=== PATIENT | male | born 1975 ===

== ENCOUNTER 2017-02-15 16:12 | Inpatient (IN) | payer OTHER ==
[2017-02-15] MEDS ORDERED: Sodium Chloride 0.9% 1,000 ML IV STA (16:37)
[2017-02-15 18:12] LABS: RBC URINE 6 /hpf (0-3); URINE BACTERIA RARE (<OCC); URINE BILIRUBIN NEGATIVE (NEGATIVE); URINE BLOOD NEGATIVE (NEGATIVE); URINE COLOR AMBER (YELLOW); URINE GLUCOSE (UA) NEG (Normal); URINE KETONE TRACE mg/dL (NEGATIVE); URINE LEUKOCYTE ESTERASE NEG Leu/uL (Negative); URINE PROTEIN 30 mg/dL (NEGATIVE); WBC URINE 4 /hpf (0-5)
[2017-02-15 18:17] LABS: BASO # 0.1 K/uL (0.0-0.2); BASO % 0.5 % (0.0-2.0); EOS % 0.1 % (0.0-4.0); HEMATOCRIT 36.6 % (35.0-51.0); LYMPH # 1.2 K/uL (1.0-4.3); LYMPH % 6.7 % (20.0-40.0); MEAN CELL VOLUME 87.8 fl (80.0-94.0); MEAN CORPUSCULAR HEMOGLOBIN 29.2 pg (27.0-31.0); MEAN CORPUSCULAR HGB CONC 33.3 g/dL (33.0-37.0); MEAN PLATELET VOLUME 9.3 fl (7.2-11.7); MONO # 1.7 K/uL (0.0-0.8); MONO % 9.1 % (0.0-10.0); NEUT # 15.1 K/uL (1.8-7.0); NEUT % 83.6 % (50.0-75.0); NRBC % 0.1 % (0.0-0.0); PLATELET COUNT 268 K/uL (130-400); RED CELL DISTRIBUTION WIDTH 12.8 % (11.5-14.5); WHITE BLOOD COUNT 18.1 K/uL (4.8-10.8)
[2017-02-15 18:23] LABS: ALB/GLOB RATIO 1.2 (1.0-2.1); ALKALINE PHOSPHATASE 88 U/L (38-126); ALT/SGPT 33 U/L (21-72); AST/SGOT 25 U/L (17-59); BILIRUBIN,TOTAL 0.9 mg/dl (0.2-1.3); BLOOD UREA NITROGEN 12 mg/dl (9-20); CALCIUM 8.5 mg/dL (8.4-10.2); CARBON DIOXIDE 27 mmol/L (22-30); CHLORIDE 102 mmol/L (98-107); GFR AFRICAN-AMERICAN > 60; GLUCOSE,RANDOM 95 mg/dL (75-110); LIPASE 24 U/L (23-300); POTASSIUM 3.9 MMOL/L (3.6-5.0); SODIUM 139 mmol/l (132-148); TOTAL PROTEIN 6.7 G/DL (6.3-8.2)
[2017-02-15] MEDS ORDERED: Iohexol 300 100 ML IJ ONE (18:31)
[2017-02-15] MEDS ORDERED: Sodium Chloride 0.9% 50 ML IV ONE (18:31)
--- NOTE | 2017-02-15 19:02 | ED PDOC ---
HPI: Abdomen Time Seen by Provider: 02/15/17 16:36 Chief Complaint (Nursing): Abdominal Pain Chief Complaint (Provider): Abdominal Pain History Per: Patient History/Exam Limitations: no limitations Onset/Duration Of Symptoms: Sudden Onset Current Symptoms Are (Timing): Still Present Severity: Moderate Associated Symptoms: Vomiting. denies: Diarrhea Additional Complaint(s): Mauricio Navarro is a 41 y/o male, with a past medical history of Small Bowel Obstruction, presenting to the ER on 02/15/2017 with a sudden onset of abdominal pain onset this morning. Abdominal pain is associated with multiple episodes of vomiting. Patient denies fever, diarrhea, or hematemesis. Per prior charts, patient has a history significant for multiple SBOs of unknown etiology. Patient was required to have laparotomies in the past. Past Medical History Reviewed: Historical Data, Nursing Documentation, Vital Signs Vital Signs: Last Vital Signs Temp 98.6 F 02/17/17 15:50 Pulse 76 02/17/17 15:50 Resp 20 02/17/17 15:50 BP 122/69 02/17/17 15:50 Pulse Ox 100 02/17/17 15:50 - Medical History PMH: Obstructive Bowel Denies: Crohn's Disease, HIV, Chronic Kidney Disease Other PMH: SBO - Surgical History Other surgeries: laparotomy two years ago - Family History Family History: States: Unknown Family Hx - Social History Current smoker - smoking cessation education provided: No Alcohol: None Drugs: Denies - Immunization History Hx Tetanus Toxoid Vaccination: No Hx Influenza Vaccination: No Hx Pneumococcal Vaccination: No - Home Medications Home Medications: Ambulatory Orders Medication Instructions Recorded Amoxicillin/Clavulanate [Augmentin 1 tab PO BID #8 tab 02/17/17 875 MG-125 MG] Metronidazole [Flagyl] 500 mg PO TID #15 tablet 02/17/17 - Allergies Allergies/Adverse Reactions: Allergies Allergy/AdvReac Type Severity Reaction Status Date / Time No Known Allergies Allergy Verified 10/14/16 16:06 Review of Systems ROS Statement: Except As Marked, All Systems Reviewed And Found Negative Constitutional: Negative for: Fever Gastrointestinal: Positive for: Vomiting, Abdominal Pain. Negative for: Diarrhea, Hematemesis Physical Exam - Reviewed Nursing Documentation Reviewed: Yes Vital Signs Reviewed: Yes - Physical Exam Appears: Positive for: Non-toxic, No Acute Distress Head Exam: Positive for: ATRAUMATIC, NORMOCEPHALIC Skin: Positive for: Normal Color. Negative for: Rash Eye Exam: Positive for: Normal appearance, EOMI, PERRL ENT: Positive for: Normal ENT Inspection. Negative for: Pharyngeal Erythema, Tonsillar Exudate, Tonsillar Swelling Neck: Positive for: Normal, Painless ROM, Supple Cardiovascular/Chest: Positive for: Regular Rate, Rhythm. Negative for: Murmur Respiratory: Positive for: Normal Breath Sounds. Negative for: Wheezing, Respiratory Distress Gastrointestinal/Abdominal: Positive for: Tenderness ((+) diffuse with midline healed surgicial incision ) Extremity: Positive for: Normal ROM. Negative for: Deformity, Swelling Neurologic/Psych: Positive for: Alert, Oriented. Negative for: Motor/Sensory Deficits - Laboratory Results Result Diagrams: 02/17/17 04:45 02/17/17 04:45 - ECG O2 Sat by Pulse Oximetry: 98 Medical Decision Making Medical Decision Makin:36 Initial Impression- 41 y/o male with abdominal pain in setting of known SBO history Initial Plan- * CT Abd & Pelvis IV contrast * CBC w/ differential * Morphine 2 mg IV * Sodium Chloride 1,000 ml IV * Zofran 4 mg IV 19:00 Lab work reviewed, shows elevated white count. Pt will be signed out to Dr. Vaishali MD. Peding CT results. Documented by Sharon Goodwin, acting as a scribe for Flaco Be III, DO All medical record entries made by the Scribe were at my direction and personally dictated by me. I have reviewed the chart and agree that the record accurately reflects my personal performance of the history, physical exam, medical decision making, and the department course for this patient. I have also personally directed, reviewed, and agree with the discharge instructions and disposition. Disposition - Clinical Impression Clinical Impression: Small bowel obstruction, Enteritis - Patient ED Disposition Is Patient to be Admitted: Transfer of Care - Disposition Disposition: Transfer of Care Disposition Time: 19:00 Condition: GOOD Patient Signed Over To: Candido Tom
--- NOTE | 2017-02-15 19:28 | ED PDOC ---
- Laboratory Results Result Diagrams: 02/16/17 07:21 02/16/17 07:21 - ECG O2 Sat by Pulse Oximetry: 98 Medical Decision Making Medical Decision Makin:00 Pt signed out to me by Dr. Indiana DO. Pending CT abd/pelvis and re-evaluation. 20:30 CT ABDOMEN FINDINGS: LOWER THORAX: No infiltrate seen in the lung bases. ABDOMEN: LIVER: Fatty infiltration of the liver. GALLBLADDER AND BILE DUCTS: No CT evidence of acute cholecystitis. No evidence of significant biliary ductal dilatation. PANCREAS: No CT evidence of acute pancreatitis. SPLEEN: No acute abnormality of the spleen identified. ADRENALS: No acute abnormality of the adrenal glands identified. KIDNEYS AND URETERS: Incidental fluid density left renal lesion, measuring less than 10 mm. No further followup imaging is recommended for incidental lesions of this size, unless otherwise clinically indicated. No acute abnormality of the kidneys identified. STOMACH AND BOWEL: Wall thickening is seen involving multiple small bowel loops, in the lower abdomen bilaterally, and in the left pelvis, highly suspicious for multifocal enteritis. There are a few fluid filled and dilated small bowel loops seen, most likely representing an associated ileus versus a partial small bowel obstruction. There is no evidence of a diffuse or high-grade small bowel obstruction. Unremarkable appearance of the terminal ileum. Surgical suture line/surgical anatomosis is noted in a left abdominal small bowel loop. Otherwise, no significant abnormality of the bowel is identified. No evidence of diffuse colitis/pancolitis. No evidence of pneumatosis intestinalis. APPENDIX: Appendix is seen, and is within normal limits in appearance. PELVIS: BLADDER: No acute abnormality of the bladder identified. REPRODUCTIVE: No acute abnormality of the reproductive organs is seen. ABDOMEN and PELVIS: INTRAPERITONEAL SPACE: Small amount of free fluid in the pelvis. No evidence of free air. BONES/JOINTS: Mild to moderate osteoarthritic changes involving the right hip. SOFT TISSUES: No acute abnormality of the visualized soft tissues is seen. VASCULATURE: No evidence of abdominal aortic aneurysm. No evidence of periaortic hemorrhage. LYMPH NODES: Multiple small mesenteric lymph nodes are seen. These are most likely reactive in etiology or related to be suspected enteritis. No evidence of diffuse pathologic lymphadenopathy. IMPRESSION: - Findings highly suspicious for multifocal enteritis. - Mild small bowel dilatation, most likely due to an associated ileus versus a partial SBO. - Small amount of pelvic free fluid. - See above for remaining findings. Case was discussed with Dr. Heard, surgical supply assistant, who will inform Dr. Amaro for a surgical consult. Pt will be admitted under Dr. Mi, who has agreed to accept the pt for admission. Documented by Sharon Goodwin, acting as a scribe for Candido Tom MD. All medical record entries made by the Scribe were at my direction and personally dictated by me. I have reviewed the chart and agree that the record accurately reflects my personal performance of the history, physical exam, medical decision making, and the department course for this patient. I have also personally directed, reviewed, and agree with the discharge instructions and disposition. At 03:00 RN alerted provider of patient witrh deranged VS (tachycardia/ hypotension/febrile); RN instructed to inform hospitalist Dr Mi for sepsis protocol fluid boluses and CODE sepsis. Patient upgraded o ICU for further care Disposition Discussed With Dr.: Castro Mi (Dr Heard) Doctor Will See Patient In The: ED Counseled Patient/Family Regarding: Studies Performed, Diagnosis - Clinical Impression Clinical Impression: Small bowel obstruction, Enteritis - POA Present On Arrival: None - Disposition Disposition: Admitted as In-Patient Disposition Time: 20:30 Condition: GUARDED
--- NOTE | 2017-02-15 19:54 | CT ---
EXAM: CT Abdomen and Pelvis With Intravenous Contrast CLINICAL HISTORY: 41 years old, male; Pain; Abdominal pain; Epigastric; Patient HX: Pat history of diverticulitis, also abdominal surgery last year; Additional info: Abd pain vomiting HX multiple sbo TECHNIQUE: Axial computed tomography images of the abdomen and pelvis with intravenous contrast. This CT exam was performed using one or more of the following dose reduction techniques: automated exposure control, adjustment of the mA and/or kV according to patient size, and/or use of iterative reconstruction technique. Coronal and sagittal reformatted images were created and reviewed. CONTRAST: 95 mL of OMNIPAQUE 3OO administered intravenously. EXAM DATE/TIME: 02/15/2017 4:45 PM COMPARISON: Prior CT abdomen and pelvis of 02/24/2016 will go FINDINGS: LOWER THORAX: No infiltrate seen in the lung bases. ABDOMEN: LIVER: Fatty infiltration of the liver. GALLBLADDER AND BILE DUCTS: No CT evidence of acute cholecystitis. No evidence of significant biliary ductal dilatation. PANCREAS: No CT evidence of acute pancreatitis. SPLEEN: No acute abnormality of the spleen identified. ADRENALS: No acute abnormality of the adrenal glands identified. KIDNEYS AND URETERS: Incidental fluid density left renal lesion, measuring less than 10 mm. No further followup imaging is recommended for incidental lesions of this size, unless otherwise clinically indicated. No acute abnormality of the kidneys identified. STOMACH AND BOWEL: Wall thickening is seen involving multiple small bowel loops, in the lower abdomen bilaterally, and in the left pelvis, highly suspicious for multifocal enteritis. There are a few fluid filled and dilated small bowel loops seen, most likely representing an associated ileus versus a partial small bowel obstruction. There is no evidence of a diffuse or high-grade small bowel obstruction. Unremarkable appearance of the terminal ileum. Surgical suture line/surgical anatomosis is noted in a left abdominal small bowel loop. Otherwise, no significant abnormality of the bowel is identified. No evidence of diffuse colitis/pancolitis. No evidence of pneumatosis intestinalis. APPENDIX: Appendix is seen, and is within normal limits in appearance. PELVIS: BLADDER: No acute abnormality of the bladder identified. REPRODUCTIVE: No acute abnormality of the reproductive organs is seen. ABDOMEN and PELVIS: INTRAPERITONEAL SPACE: Small amount of free fluid in the pelvis. No evidence of free air. BONES/JOINTS: Mild to moderate osteoarthritic changes involving the right hip. SOFT TISSUES: No acute abnormality of the visualized soft tissues is seen. VASCULATURE: No evidence of abdominal aortic aneurysm. No evidence of periaortic hemorrhage. LYMPH NODES: Multiple small mesenteric lymph nodes are seen. These are most likely reactive in etiology or related to be suspected enteritis. No evidence of diffuse pathologic lymphadenopathy. IMPRESSION: - Findings highly suspicious for multifocal enteritis. - Mild small bowel dilatation, most likely due to an associated ileus versus a partial SBO. - Small amount of pelvic free fluid. - See above for remaining findings.
--- NOTE | 2017-02-15 20:52 | CP.PCM.HP ---
History of Present Illness - History of Present Illness History of Present Illness: CC: abd pain, n/v History is via as patient is Slovak speaking only MHx: This is a 41 y/o male with MHx/SHx significant for episodes of SBO requiring surgeries in the past. Per his , developed abd pain this morning and 4 episodes of nb/nb vomiting. Not able to take PO. Denies f/c/diarrhea. Last BM this AM. He has not been on any narcotics or any other new medications recently. ROS: 14 pt. ROS negative other than HPI MHx: multiple admissions for SBO in the past SHx: surgery for SBO x 2, 2012 and 2014; Dental surgery Allergies: Cipro, flagyl listed in the past Medications: None Family Hx: Reviewed, no relevant hx Social Hx: Lives at home with family; denies EtOH, denies tobacco Surrogate decision maker: ; contact info on chart Present on Admission - Present on Admission Any Indicators Present on Admission: No Past Patient History - Infectious Disease Hx of Infectious Diseases: None - Tetanus Immunizations Tetanus Immunization: Unknown - Past Medical History & Family History Past Medical History?: Yes - Past Social History Alcohol: None Drugs: Denies - CARDIAC Hx Cardiac Disorders: No - PULMONARY Hx Respiratory Disorders: No - NEUROLOGICAL Hx Neurological Disorder: No - HEENT Hx HEENT Problems: No - RENAL Hx Chronic Kidney Disease: No - ENDOCRINE/METABOLIC Hx Endocrine Disorders: No - HEMATOLOGICAL/ONCOLOGICAL Hx Human Immunodeficiency Virus (HIV): No - INTEGUMENTARY Hx Dermatological Problems: No - MUSCULOSKELETAL/RHEUMATOLOGICAL Hx Musculoskeletal Disorders: No - GASTROINTESTINAL Hx Crohn's Disease: No - GENITOURINARY/GYNECOLOGICAL Hx Genitourinary Disorders: No - PSYCHIATRIC Hx Psychophysiologic Disorder: No Hx Substance Use: No - SURGICAL HISTORY Hx Surgeries: Yes Other/Comment: SB resection x 2 (2012 & 2013) - ANESTHESIA Hx Anesthesia: Yes Hx Anesthesia Reactions: No Hx Malignant Hyperthermia: No Meds Allergies/Adverse Reactions: Allergies Allergy/AdvReac Type Severity Reaction Status Date / Time No Known Allergies Allergy Verified 10/14/16 16:06 Physical Exam - Constitutional Appears: No Acute Distress - Head Exam Head Exam: ATRAUMATIC, NORMOCEPHALIC - Eye Exam Eye Exam: EOMI, PERRL - ENT Exam ENT Exam: Mucous Membranes Dry - Neck Exam Neck exam: Positive for: Full Rom - Respiratory Exam Respiratory Exam: Clear to Auscultation Bilateral, NORMAL BREATHING PATTERN - Cardiovascular Exam Cardiovascular Exam: REGULAR RHYTHM, +S1, +S2 - GI/Abdominal Exam GI & Abdominal Exam: Normal Bowel Sounds, Soft, Tenderness - Extremities Exam Extremities exam: Positive for: full ROM, normal inspection - Neurological Exam Neurological exam: Alert, CN II-XII Intact, Oriented x3 - Psychiatric Exam Psychiatric exam: Normal Affect, Normal Mood - Skin Skin Exam: Dry, Warm Results - Vital Signs Recent Vital Signs: Last Vital Signs Temp 99.6 F 02/15/17 20:27 Pulse 92 H 02/15/17 20:27 Resp 18 02/15/17 20:27 BP 101/52 L 02/15/17 19:10 Pulse Ox 95 02/15/17 20:27 - Labs Result Diagrams: 02/15/17 18:06 02/15/17 18:06 - Imaging and Cardiology CT scan - abdomen Status: Image reviewed by me, Report reviewed by me (Ileus vs partial SBO) Assessment & Plan (1) Small bowel obstruction Assessment and Plan: 41 y/o male with prior history of abd surgery and recurrent SBOs coming in with abd pain n/v. 1) Partial SBO vs. Ileus -NPO, IVF -Morphine for pain PRN IV, Zofran for nausea IV -Surgery, Dr. Hampton consulted 2) DVT PPx -- SCDS only in case needs procedure Status: Acute (2) DVT prophylaxis Status: Acute
[2017-02-15] MEDS ORDERED: Sodium Chloride 0.9% 1,000 ML IV SCH ×2 (21:00→23:45)
[2017-02-15 21:51] LABS: NEUTROPHIL 83 % (42-75); TOTAL CELLS COUNTED 100
[2017-02-15 21:52] LABS: GIANT PLATELETS PRESENT; LARGE PLATELETS PRESENT
[2017-02-15 22:55] LABS: RBC URINE 2 /hpf (0-3); URINE BILIRUBIN NEGATIVE (NEGATIVE); URINE BLOOD NEGATIVE (NEGATIVE); URINE COLOR YELLOW (YELLOW); URINE GLUCOSE (UA) NEG (Normal); URINE KETONE NEGATIVE (NEGATIVE); URINE LEUKOCYTE ESTERASE NEG Leu/uL (Negative); URINE PROTEIN 30 mg/dL (NEGATIVE); WBC CLUMPS FEW /hpf; WBC URINE 46 /hpf (0-5)
--- NOTE | 2017-02-15 23:52 | CP.PCM.CON ---
<FélixTami - Last Filed: 02/15/17 23:48> History of Present Illness - History of Present Illness History of Present Illness: General Surgery - Dr. Amaro 41 yo M w/ hx of multiple episodes of SBO, presents to ED with complaints of N/V , Headache and bodyaches since 10am this morning. Pt states he had mild abdominal pain earlier but it resolved. He describes this event as different from prior episodes of SBO as he usually has more pain, and does not usually get bodyaches and headache. He admits to vomiting earlier today at home and in ED after receiving IV contrast. He developed a fever of 101.1. Pt states he is passing flatus and had a BM earlier today which was normal. He denies any SOB/Chest pain, Constipation, Diarrhea, Hematochezia, Hematemesis, Dysuria, Hematuria. PMH: SBO PSH: Small bowel resection x 2 (2012, 2013) No Meds NKDA Review of Systems - Review of Systems All systems: reviewed and no additional remarkable complaints except (as per HPI ) Past Patient History - Infectious Disease Hx of Infectious Diseases: None - Tetanus Immunizations Tetanus Immunization: Unknown - Past Medical History & Family History Past Medical History?: Yes - Past Social History Alcohol: None Drugs: Denies - CARDIAC Hx Cardiac Disorders: No - PULMONARY Hx Respiratory Disorders: No - NEUROLOGICAL Hx Neurological Disorder: No - HEENT Hx HEENT Problems: No - RENAL Hx Chronic Kidney Disease: No - ENDOCRINE/METABOLIC Hx Endocrine Disorders: No - HEMATOLOGICAL/ONCOLOGICAL Hx Human Immunodeficiency Virus (HIV): No - INTEGUMENTARY Hx Dermatological Problems: No - MUSCULOSKELETAL/RHEUMATOLOGICAL Hx Musculoskeletal Disorders: No - GASTROINTESTINAL Hx Crohn's Disease: No - GENITOURINARY/GYNECOLOGICAL Hx Genitourinary Disorders: No - PSYCHIATRIC Hx Psychophysiologic Disorder: No Hx Substance Use: No - SURGICAL HISTORY Hx Surgeries: Yes Other/Comment: SB resection x 2 (2012 & 2013) - ANESTHESIA Hx Anesthesia: Yes Hx Anesthesia Reactions: No Hx Malignant Hyperthermia: No Meds Allergies/Adverse Reactions: Allergies Allergy/AdvReac Type Severity Reaction Status Date / Time No Known Allergies Allergy Verified 10/14/16 16:06 - Medications Medications: Current Medications Acetaminophen (Tylenol 650 Mg Supp) 650 mg MS Q6 PRN PRN Reason: Fever >100.4 F Last Admin: 02/15/17 23:08 Dose: 650 mg Famotidine (Pepcid) 20 mg IVP Q12 GEENA Sodium Chloride (Sodium Chloride 0.9%) 1,000 mls @ 100 mls/hr IV .Q10H [facility] Stop: 02/16/17 16:59 Last Admin: 02/15/17 21:49 Dose: 100 mls/hr Sodium Chloride (Sodium Chloride 0.9%) 1,000 mls @ 999 mls/hr IV .Q1H1M [facility] Stop: 02/16/17 23:45 Piperacillin Sod/Tazobactam (Sod 3.375 gm/ Sodium Chloride) 100 mls @ 100 mls/ hr IVPB Q6 GEENA Morphine Sulfate (Morphine) 1 mg IVP Q4 PRN PRN Reason: Pain, Mild (1-3) Morphine Sulfate (Morphine) 2 mg IVP Q4 PRN PRN Reason: Pain, moderate (4-7) Last Admin: 02/15/17 23:44 Dose: 2 mg Ondansetron HCl (Zofran Inj) 4 mg IVP Q6 PRN PRN Reason: Nausea/Vomiting Physical Exam - Constitutional Appears: No Acute Distress, Other (ill appearing) - Head Exam Head Exam: ATRAUMATIC, NORMAL INSPECTION, NORMOCEPHALIC - Eye Exam Eye Exam: EOMI, Normal appearance - ENT Exam ENT Exam: Mucous Membranes Dry - Respiratory Exam Respiratory Exam: NORMAL BREATHING PATTERN. absent: Respiratory Distress - Cardiovascular Exam Cardiovascular Exam: Tachycardia - GI/Abdominal Exam GI & Abdominal Exam: Soft, Tenderness (mild ttp in LLQ). absent: Distended, Firm, Guarding, Rebound, Rigid - Neurological Exam Neurological exam: Alert, Oriented x3 - Psychiatric Exam Psychiatric exam: Normal Affect, Normal Mood - Skin Skin Exam: Dry, Intact, Normal Color Results - Vital Signs Recent Vital Signs: Last Vital Signs Temp 101.1 F H 02/15/17 21:50 Pulse 91 H 02/15/17 21:50 Resp 18 02/15/17 21:50 BP 109/60 02/15/17 21:50 Pulse Ox 97 02/15/17 21:50 - Labs Result Diagrams: 02/15/17 18:06 02/15/17 18:06 Labs: Laboratory Results - last 24 hr 02/15/17 22:40 Urine Color Yellow Urine Clarity Turbid Urine pH 5.0 Ur Specific [place] 1.028 Urine Protein 30 Urine Glucose (UA) Neg Urine Ketones Negative Urine Blood Negative Urine Nitrate Negative Urine Bilirubin Negative Urine Urobilinogen 2.0 Ur Leukocyte Esterase Neg Urine RBC (Auto) 2 Urine WBC Clumps (Auto) Few H Urine Microscopic WBC 46 H Urine Yeast (Budding) Few H - Imaging and Cardiology CT scan - abdomen Status: Image reviewed by me, Report reviewed by me Assessment & Plan - Assessment and Plan (Free Text) Assessment: 41 yo M w/ hx of recurrent SBO, with Enteritis and mild partial SBO -CT suggestive of multifocal enteritis with a few dilated small bowel loops -NPO, may have ice chips -IVF hydration -IV Abx -Zofran prn -No surgical intervention DW Dr Prem Heard PGY2 <Thaddeus Amaro - Last Filed: 02/16/17 21:27> Meds - Medications Medications: Current Medications Acetaminophen (Tylenol 650 Mg Supp) 650 mg MS Q6 PRN PRN Reason: Fever >100.4 F Last Admin: 02/15/17 23:08 Dose: 650 mg Famotidine (Pepcid) 20 mg IVP Q12 GEENA Last Admin: 02/16/17 20:38 Dose: 20 mg Piperacillin Sod/Tazobactam (Sod 3.375 gm/ Sodium Chloride) 100 mls @ 100 mls/ hr IVPB 0000,0600,1200,1800 GEENA Last Admin: 02/16/17 17:24 Dose: 100 mls/hr Ketorolac Tromethamine (Toradol) 30 mg IVP Q6 PRN PRN Reason: Pain, moderate (4-7) Last Admin: 02/16/17 10:27 Dose: 30 mg Morphine Sulfate (Morphine) 1 mg IVP Q4 PRN PRN Reason: Pain, Mild (1-3) Morphine Sulfate (Morphine) 2 mg IVP Q4 PRN PRN Reason: Pain, moderate (4-7) Last Admin: 02/15/17 23:44 Dose: 2 mg Ondansetron HCl (Zofran Inj) 4 mg IVP Q4H PRN PRN Reason: Nausea/Vomiting Results - Vital Signs Recent Vital Signs: Last Vital Signs Temp 99 F 02/16/17 20:00 Pulse 65 02/16/17 20:00 Resp 13 02/16/17 20:00 BP 141/58 L 02/16/17 20:00 Pulse Ox 98 02/16/17 20:37 - Labs Result Diagrams: 02/16/17 07:21 02/16/17 07:21 Labs: Laboratory Results - last 24 hr 02/16/17 02/16/17 02/16/17 05:06 07:21 07:21 WBC 10.4 RBC 3.49 L Hgb 10.2 L D Hct 31.3 L MCV 89.9 D MCH 29.4 MCHC 32.7 L RDW 13.2 Plt Count 207 MPV 9.1 Neut % (Auto) 71.1 Lymph % (Auto) 15.2 L [place] % (Auto) 12.0 H Eos % (Auto) 1.0 Baso % (Auto) 0.7 Neut # 7.4 H Lymph # 1.6 [place] # 1.2 H Eos # 0.1 Baso # 0.1 Sodium 141 Potassium 3.7 Chloride 111 H Carbon Dioxide 24 Anion Gap 10 BUN 9 Creatinine 0.7 L Est GFR ( Amer) > 60 Est GFR (Non-Af Amer) > 60 Random Glucose 91 Lactic Acid 0.8 Calcium 7.3 L 02/16/17 07:21 WBC RBC Hgb Hct MCV MCH MCHC RDW Plt Count MPV Neut % (Auto) Lymph % (Auto) [place] % (Auto) Eos % (Auto) Baso % (Auto) Neut # Lymph # [place] # Eos # Baso # Sodium Potassium Chloride Carbon Dioxide Anion Gap BUN Creatinine Est GFR ( Amer) Est GFR (Non-Af Amer) Random Glucose Lactic Acid 0.7 Calcium Attending/Attestation - Attestation I have personally seen and examined this patient.: Yes I have fully participated in the care of the patient.: Yes I have reviewed all pertinent clinical information: Yes Notes (Text): 02/16/17 21:26 Pt was seen and examined at bedside on 02/16/17 Agree with above note and assessment Pt with Severe Enteritis with dehydration and Hypovolemia C/W IV antibiotics Plan d.w pt in detail. Risk and benefit explained in detail.
[2017-02-16] MEDS: Sodium Chloride 0.9% 1,000 ML IV SCH ×4 (01:16→17:25)
[2017-02-16] MEDS ORDERED: Sodium Chloride 0.9% 500 ML IV ONE (03:09)
[2017-02-16] MEDS: Piperacillin/Tazobact 3.375 GM in Sodium Chloride 0.9% 100 ML IVPB SCH ×4 (06:04→23:07)
[2017-02-16 07:33] LABS: BASO # 0.1 K/uL (0.0-0.2); BASO % 0.7 % (0.0-2.0); EOS # 0.1 K/uL (0.0-0.7); HEMATOCRIT 31.3 % (35.0-51.0); LYMPH # 1.6 K/uL (1.0-4.3); LYMPH % 15.2 % (20.0-40.0); MEAN CELL VOLUME 89.9 fl (80.0-94.0); MEAN CORPUSCULAR HEMOGLOBIN 29.4 pg (27.0-31.0); MEAN CORPUSCULAR HGB CONC 32.7 g/dL (33.0-37.0); MEAN PLATELET VOLUME 9.1 fl (7.2-11.7); MONO # 1.2 K/uL (0.0-0.8); NEUT # 7.4 K/uL (1.8-7.0); NEUT % 71.1 % (50.0-75.0); RED CELL DISTRIBUTION WIDTH 13.2 % (11.5-14.5); WHITE BLOOD COUNT 10.4 K/uL (4.8-10.8)
[2017-02-16 07:37] LABS: BLOOD UREA NITROGEN 9 mg/dl (9-20); CALCIUM 7.3 mg/dL (8.4-10.2); CARBON DIOXIDE 24 mmol/L (22-30); CHLORIDE 111 mmol/L (98-107); GFR AFRICAN-AMERICAN > 60; GLUCOSE,RANDOM 91 mg/dL (75-110); POTASSIUM 3.7 MMOL/L (3.6-5.0); SODIUM 141 mmol/l (132-148)
--- NOTE | 2017-02-16 09:31 | RAD ---
PROCEDURE: CHEST RADIOGRAPH, 1 VIEW HISTORY: fever COMPARISON: 10/14/2016. FINDINGS: LUNGS: The lungs are well inflated and clear. PLEURA: No pneumothorax or pleural fluid seen. CARDIOVASCULAR: Normal. OSSEOUS STRUCTURES: No significant abnormalities. VISUALIZED UPPER ABDOMEN: Normal. OTHER FINDINGS: None. IMPRESSION: No active pulmonary disease.
--- NOTE | 2017-02-16 11:33 | CP.PCM.PN ---
<Stacie Darling - Last Filed: 02/16/17 17:05> Subjective - Date & Time of Evaluation Date of Evaluation: 02/16/17 Time of Evaluation: 06:45 - Subjective Subjective: Pt s/e at bedside in the ICU. Patient states that his abdominal pain and nausea have resolved with only mild residual LLQ pain. Patient states that he is passing gas and tolerating sips of water well. Denies any fevers, chills, chest pain, SOB, or any other complaints or concerns. Patient was sent to the ICU this AM for hypotension, which resolved with aggressive fluid resuscitation. Objective - Vital Signs/Intake and Output Vital Signs (last 24 hours): Temp Pulse Resp BP Pulse Ox 97.6 F 66 16 108/63 98 02/16/17 08:00 02/16/17 10:00 02/16/17 10:00 02/16/17 10:00 02/16/17 10:00 Intake and Output: 02/16/17 02/16/17 06:59 18:59 Intake Total 100 Balance 100 - Medications Medications: Current Medications Acetaminophen (Tylenol 650 Mg Supp) [address] Q6 PRN PRN Reason: Fever >100.4 F Last Admin: 02/15/17 23:08 Dose: 650 mg Famotidine (Pepcid) 20 mg IVP Q12 [facility] Last Admin: 02/16/17 08:20 Dose: 20 mg Sodium Chloride (Sodium Chloride 0.9%) 1,000 mls @ 150 mls/hr IV .Q6H40M [facility] Stop: 02/16/17 21:07 Last Admin: 02/16/17 08:22 Dose: 150 mls/hr Piperacillin Sod/Tazobactam (Sod 3.375 gm/ Sodium Chloride) 100 mls @ 100 mls/ hr IVPB 0000,0600,1200,1800 [facility] Last Admin: 02/16/17 06:04 Dose: 100 mls/hr Ketorolac Tromethamine (Toradol) 30 mg IVP Q6 PRN PRN Reason: Pain, moderate (4-7) Last Admin: 02/16/17 10:27 Dose: 30 mg Morphine Sulfate (Morphine) 1 mg IVP Q4 PRN PRN Reason: Pain, Mild (1-3) Morphine Sulfate (Morphine) 2 mg IVP Q4 PRN PRN Reason: Pain, moderate (4-7) Last Admin: 02/15/17 23:44 Dose: 2 mg Ondansetron HCl (Zofran Inj) 4 mg IVP Q4H PRN PRN Reason: Nausea/Vomiting - Labs Labs: 02/16/17 07:21 02/16/17 07:21 - Constitutional Appears: Well, Non-toxic, No Acute Distress - Head Exam Head Exam: ATRAUMATIC, NORMOCEPHALIC - Eye Exam Eye Exam: Normal appearance. absent: Conjunctival injection, Scleral icterus - ENT Exam ENT Exam: Mucous Membranes Moist, Normal Oropharynx - Respiratory Exam Respiratory Exam: NORMAL BREATHING PATTERN. absent: Accessory Muscle Use, Respiratory Distress - Cardiovascular Exam Cardiovascular Exam: RRR - GI/Abdominal Exam GI & Abdominal Exam: Distended (mild distention in the BL lower quadrants), Soft , Tenderness (mild tenderness to palpation in the LLQ). absent: Guarding, Rigid , Rebound - Extremities Exam Extremities Exam: absent: Calf Tenderness, Pedal Edema, Tenderness - Neurological Exam Neurological Exam: Alert, Awake, Oriented x3 - Psychiatric Exam Psychiatric exam: Normal Affect, Normal Mood - Skin Skin Exam: Dry, Intact, Normal Color, Warm Assessment and Plan - Assessment and Plan (Free Text) Assessment: 41M with PMH of small bowel resection with abdominal pain and fevers CT 02/15: multifocal enteritis with few dilated loops of small bowel Abdominal complaints resolved today, passing gas, No acute abdomen on exam Afebrile for 12 hours Hypotension early this AM resolved with fluid resuscitation WBC: 10.4 down from 18.1 yesterday Plan: -No indication for emergent surgery, case suspicious of enteritis vs. partial SBO -Leukocytosis, fevers, and hypotension have resolved -Continue antibiotics -Serial abdominal exams -Urine culture to assess for UTI as cause of infectious picture -Advance to CLD as tolerated. FLD in the AM if tolerated CLD -Encourage ambulation Further recs per Dr. Dheeraj Darling, PGY1 <Thaddeus Amaro - Last Filed: 02/16/17 21:32> Objective - Vital Signs/Intake and Output Vital Signs (last 24 hours): Temp Pulse Resp BP Pulse Ox 99 F 65 13 141/58 L 98 02/16/17 20:00 02/16/17 20:00 02/16/17 20:00 02/16/17 20:00 02/16/17 20:37 Intake and Output: 02/16/17 02/17/17 18:59 06:59 Intake Total 2230 420 Output Total 950 400 Balance 1280 20 - Medications Medications: Current Medications Acetaminophen (Tylenol 650 Mg Supp) [address] Q6 PRN PRN Reason: Fever >100.4 F Last Admin: 02/15/17 23:08 Dose: 650 mg Famotidine (Pepcid) 20 mg IVP Q12 [facility] Last Admin: 02/16/17 20:38 Dose: 20 mg Piperacillin Sod/Tazobactam (Sod 3.375 gm/ Sodium Chloride) 100 mls @ 100 mls/ hr IVPB 0000,0600,1200,1800 [facility] Last Admin: 02/16/17 17:24 Dose: 100 mls/hr Ketorolac Tromethamine (Toradol) 30 mg IVP Q6 PRN PRN Reason: Pain, moderate (4-7) Last Admin: 02/16/17 10:27 Dose: 30 mg Morphine Sulfate (Morphine) 1 mg IVP Q4 PRN PRN Reason: Pain, Mild (1-3) Morphine Sulfate (Morphine) 2 mg IVP Q4 PRN PRN Reason: Pain, moderate (4-7) Last Admin: 02/15/17 23:44 Dose: 2 mg Ondansetron HCl (Zofran Inj) 4 mg IVP Q4H PRN PRN Reason: Nausea/Vomiting - Labs Labs: 02/16/17 07:21 02/16/17 07:21 Attending/Attestation - Attestation I have personally seen and examined this patient.: Yes I have fully participated in the care of the patient.: Yes I have reviewed all pertinent clinical information, including history, physical exam and plan: Yes Notes (Text): 02/16/17 21:31 Pt was seen and examined at bedside on 02/16/17 Agree with above note and assessment Pt with Resolving Enteritis and Dehydration Can start Clear liquid diet IV antibiotics No need for any surgical intervention at present. Plan d.w pt in detail. Risk and benefit explained in detail.
--- NOTE | 2017-02-16 12:11 | CP.CCUPN ---
CCU Subjective - Physician Review Events Since Last Encounter (Free Text): 02/16/17 17:41 The patient was Seen/interviewed and examined by me at the bedside during ICU round, Medical records reviewed and Management issues were discussed and formulated with the house staff. 41 Years old Male admitted to the ICU for management of Small bowel obstruction and Sepsis secondary to multifocal enteritis He is doing better today Remains NPO, on IV Fluids Afebrile 02/16/17 17:43 ABD PELVIS IV CONTRAST ONLY Exam Date: 02/15/17 IMPRESSION: - Findings highly suspicious for multifocal enteritis. - Mild small bowel dilatation, most likely due to an associated ileus versus a partial SBO. - Small amount of pelvic free fluid. CCU Objective - Vital Signs / Intake & Output Vital Signs (Last 4 hours): Vital Signs Pulse Resp BP Pulse Ox 02/16/17 10:00 66 16 108/63 98 Intake and Output (Last 8hrs): Intake & Output 02/15/17 02/16/17 02/16/17 22:59 06:59 14:59 Intake Total 100 100 Balance 100 100 Intake: Intake, Piggyback 100 100 Other: # Voids Urine, Voided 1 # Bowel Movements 0 - Physical Exam Head: Positive for: Atraumatic, Normocephalic Pupils: Positive for: PERRL. Negative for: Sluggish, Non-Reactive, Pinpoint Extroacular Muscles: Positive for: EOMI Conjunctiva: Positive for: Normal. Negative for: Injected, Icteric Mouth: Positive for: Moist Mucous Membranes Pharnyx: Positive for: Normal. Negative for: ERYTHEMA Nose (Internal): Positive for: Normal Inspection Neck: Positive for: Normal Range of Motion, Trachea Midline. Negative for: Meningeal Signs, MIDLINE TENDERNESS, Paraspinal Tenderness, JVD, Lymphadenopathy , Bruit, Other Respiratory/Chest: Positive for: Clear to Auscultation, Good Air Exchange. Negative for: Respiratory Distress, Accessory Muscle Use, Wheezes, Decreased Breath Sounds, Rales, Retracting, Rhonchi, Tachypneic, Tender to Palpation Cardiovascular: Positive for: Regular Rate and Rhythm, Normal S1, S2, Peripheal Pulses Present. Negative for: Murmurs, Irregular Rhythm Abdomen: Positive for: Tenderness (Generalized), Distention, Normal Bowel Sounds. Negative for: Peritoneal Signs, Rebound, Guarding, McBurney's Point Tender, Rovsing's Sign Present, Hernias Neurological: Positive for: GCS=15, CN II-XII Intact, Speech Normal, Motor Func Grossly Intact, Normal Sensory Function - Medications Active Medications: Active Medications Generic Name Dose Route Start Last Admin Trade Name Freq PRN Reason Stop Dose Admin Acetaminophen 650 mg 02/15/17 22:27 02/15/17 23:08 Tylenol 650 Mg Supp ME 650 mg Q6 PRN Administration Fever >100.4 F Famotidine 20 mg 02/16/17 09:00 02/16/17 08:20 Pepcid IVP 20 mg Q12 [facility] Administration Sodium Chloride 1,000 mls @ 150 mls/hr 02/16/17 01:08 02/16/17 08:22 Sodium Chloride 0.9% IV 02/16/17 21:07 150 mls/hr .Q6H40M [facility] Administration Piperacillin Sod/Tazobactam 100 mls @ 100 mls/hr 02/16/17 06:00 02/16/17 11: 39 Sod 3.375 gm/ Sodium Chloride IVPB 100 mls/hr 0000,0600,1200,1800 [facility] Administration Ketorolac Tromethamine 30 mg 02/16/17 00:09 02/16/17 10:27 Toradol IVP 30 mg Q6 PRN Administration Pain, moderate (4-7) Morphine Sulfate 1 mg 02/15/17 20:48 Morphine IVP Q4 PRN Pain, Mild (1-3) Morphine Sulfate 2 mg 02/15/17 20:51 02/15/17 23:44 Morphine IVP 2 mg Q4 PRN Administration Pain, moderate (4-7) Ondansetron HCl 4 mg 02/16/17 00:10 Zofran Inj IVP Q4H PRN Nausea/Vomiting - Patient Studies Lab Studies: Lab Studies 02/16/17 02/16/17 02/16/17 Range/Units 07:21 07:21 07:21 WBC 10.4 (4.8-10.8) K/uL RBC 3.49 L (4.40-5.90) Mil/uL Hgb 10.2 L D (12.0-18.0) g/dL Hct 31.3 L (35.0-51.0) % MCV 89.9 D (80.0-94.0) fl MCH 29.4 (27.0-31.0) pg MCHC 32.7 L (33.0-37.0) g/dL RDW 13.2 (11.5-14.5) % Plt Count 207 (130-400) K/uL MPV 9.1 (7.2-11.7) fl Neut % (Auto) 71.1 (50.0-75.0) % Lymph % (Auto) 15.2 L (20.0-40.0) % Harlan % (Auto) 12.0 H (0.0-10.0) % Eos % (Auto) 1.0 (0.0-4.0) % Baso % (Auto) 0.7 (0.0-2.0) % Neut # 7.4 H (1.8-7.0) K/uL Lymph # 1.6 (1.0-4.3) K/uL Harlan # 1.2 H (0.0-0.8) K/uL Eos # 0.1 (0.0-0.7) K/uL Baso # 0.1 (0.0-0.2) K/uL Sodium 141 (132-148) mmol/l Potassium 3.7 (3.6-5.0) MMOL/L Chloride 111 H (98-107) mmol/L Carbon Dioxide 24 (22-30) mmol/L Anion Gap 10 (10-20) BUN 9 (9-20) mg/dl Creatinine 0.7 L (0.8-1.5) mg/dL Est GFR ( Amer) > 60 Est GFR (Non-Af Amer) > 60 Random Glucose 91 (75-110) mg/dL Lactic Acid 0.7 (0.7-2.1) MMOL/L Calcium 7.3 L (8.4-10.2) mg/dL 02/16/17 Range/Units 05:06 WBC (4.8-10.8) K/uL RBC (4.40-5.90) Mil/uL Hgb (12.0-18.0) g/dL Hct (35.0-51.0) % MCV (80.0-94.0) fl MCH (27.0-31.0) pg MCHC (33.0-37.0) g/dL RDW (11.5-14.5) % Plt Count (130-400) K/uL MPV (7.2-11.7) fl Neut % (Auto) (50.0-75.0) % Lymph % (Auto) (20.0-40.0) % Harlan % (Auto) (0.0-10.0) % Eos % (Auto) (0.0-4.0) % Baso % (Auto) (0.0-2.0) % Neut # (1.8-7.0) K/uL Lymph # (1.0-4.3) K/uL Harlan # (0.0-0.8) K/uL Eos # (0.0-0.7) K/uL Baso # (0.0-0.2) K/uL Sodium (132-148) mmol/l Potassium (3.6-5.0) MMOL/L Chloride (98-107) mmol/L Carbon Dioxide (22-30) mmol/L Anion Gap (10-20) BUN (9-20) mg/dl Creatinine (0.8-1.5) mg/dL Est GFR ( Amer) Est GFR (Non-Af Amer) Random Glucose (75-110) mg/dL Lactic Acid 0.8 (0.7-2.1) MMOL/L Calcium (8.4-10.2) mg/dL Laboratory Results - last 24 hr 02/16/17 02/16/17 02/16/17 05:06 07:21 07:21 WBC 10.4 RBC 3.49 L Hgb 10.2 L D Hct 31.3 L MCV 89.9 D MCH 29.4 MCHC 32.7 L RDW 13.2 Plt Count 207 MPV 9.1 Neut % (Auto) 71.1 Lymph % (Auto) 15.2 L Harlan % (Auto) 12.0 H Eos % (Auto) 1.0 Baso % (Auto) 0.7 Neut # 7.4 H Lymph # 1.6 Harlan # 1.2 H Eos # 0.1 Baso # 0.1 Sodium 141 Potassium 3.7 Chloride 111 H Carbon Dioxide 24 Anion Gap 10 BUN 9 Creatinine 0.7 L Est GFR ( Amer) > 60 Est GFR (Non-Af Amer) > 60 Random Glucose 91 Lactic Acid 0.8 Calcium 7.3 L 02/16/17 07:21 WBC RBC Hgb Hct MCV MCH MCHC RDW Plt Count MPV Neut % (Auto) Lymph % (Auto) Harlan % (Auto) Eos % (Auto) Baso % (Auto) Neut # Lymph # Harlan # Eos # Baso # Sodium Potassium Chloride Carbon Dioxide Anion Gap BUN Creatinine Est GFR ( Amer) Est GFR (Non-Af Amer) Random Glucose Lactic Acid 0.7 Calcium EKG/Cardiology Studies: Cardiology / EKG Studies 02/16/17 EKG [ELECTROCARDIOGRAM] Routine Comment: Mode Of Transportation: Reason For Exam: cp Review of Systems - Constitutional Constitutional: absent: Fever, Chills, Sweats - Cardiovascular Cardiovascular: absent: As Per HPI, Acrocyanosis, Chest Pain, Chest Pain at Rest , Chest Pain with Activity, Claudication, Diaphoresis, Dyspnea, Dyspnea on Exertion, Edema, Irregular Heart Rhythm, Pain Radiating to Arm/Neck/Jaw, Leg Edema, Leg Ulcers, Lightheadedness, Orthopnea, Palpitations, Paroxysmal Nocturnal Dyspnea, Pedal Edema, Radiating Pain, Rapid Heart Rate, Slow Heart Rate, Syncope, Other, UNREMARKABLE - Respiratory Respiratory: absent: As Per HPI, Cough, Dyspnea, Hemoptysis, Dyspnea on Exertion , Wheezing, Snoring, Stridor, Pain on Inspiration, Chest Congestion, Excessive Mucous Production, Change in Mucous Color, Pain with Coughing, Other, UNREMARKABLE - Gastrointestinal Gastrointestinal: As Per HPI Assessment/Plan (1) Sepsis Current Visit: Yes Status: Acute (2) Partial bowel obstruction Current Visit: No Status: Acute Priority: High (3) Enteritis Current Visit: No Status: Acute Comment: (4) Ileus Current Visit: No Status: Acute - Assessment and Plan (Free Text) Assessment: Patient afebrile, and hemodynamically improving IV antibiotics with Piperacillin Sod/Tazobactam Blood cultures: pending NPO Continue IV hydration with NS at 100cc/hr; continue to reassess fluid status regularly Monitor UOP Strict Is/Os Surgery consult Monitor fever curve, Tylenol PRN fevers Trend WBC count, lactate
--- NOTE | 2017-02-16 12:48 | CP.PCM.PN ---
Subjective - Date & Time of Evaluation Date of Evaluation: 02/16/17 Time of Evaluation: 12:48 - Subjective Subjective: Patient seen examined bedside Temp Pulse Resp BP Pulse Ox 98.5 F 62 13 109/62 99 02/16/17 12:00 02/16/17 14:00 02/16/17 14:00 02/16/17 14:00 02/16/17 14:00 states he feels improved, awake, alert denies any abdominal pain last BM yesterday, passing gas. no nausea or emesis no diarrhea vitals stable, no acute distress Objective - Vital Signs/Intake and Output Vital Signs (last 24 hours): Temp Pulse Resp BP Pulse Ox 98.5 F 59 L 19 112/61 98 02/16/17 12:00 02/16/17 12:00 02/16/17 12:00 02/16/17 12:00 02/16/17 12:00 Intake and Output: 02/16/17 02/16/17 06:59 18:59 Intake Total 100 100 Balance 100 100 - Medications Medications: Current Medications Acetaminophen (Tylenol 650 Mg Supp) 650 mg [place] Q6 PRN PRN Reason: Fever >100.4 F Last Admin: 02/15/17 23:08 Dose: 650 mg Famotidine (Pepcid) 20 mg IVP Q12 [facility] Last Admin: 02/16/17 08:20 Dose: 20 mg Sodium Chloride (Sodium Chloride 0.9%) 1,000 mls @ 150 mls/hr IV .Q6H40M [facility] Stop: 02/16/17 21:07 Last Admin: 02/16/17 08:22 Dose: 150 mls/hr Piperacillin Sod/Tazobactam (Sod 3.375 gm/ Sodium Chloride) 100 mls @ 100 mls/ hr IVPB 0000,0600,1200,1800 [facility] Last Admin: 02/16/17 11:39 Dose: 100 mls/hr Ketorolac Tromethamine (Toradol) 30 mg IVP Q6 PRN PRN Reason: Pain, moderate (4-7) Last Admin: 02/16/17 10:27 Dose: 30 mg Morphine Sulfate (Morphine) 1 mg IVP Q4 PRN PRN Reason: Pain, Mild (1-3) Morphine Sulfate (Morphine) 2 mg IVP Q4 PRN PRN Reason: Pain, moderate (4-7) Last Admin: 02/15/17 23:44 Dose: 2 mg Ondansetron HCl (Zofran Inj) 4 mg IVP Q4H PRN PRN Reason: Nausea/Vomiting - Labs Labs: 02/16/17 07:21 02/16/17 07:21 - Constitutional Appears: Non-toxic, No Acute Distress - Head Exam Head Exam: ATRAUMATIC, NORMOCEPHALIC - Eye Exam Eye Exam: EOMI, Normal appearance, PERRL Pupil Exam: NORMAL ACCOMODATION - ENT Exam ENT Exam: Mucous Membranes Moist, Normal Oropharynx - Respiratory Exam Respiratory Exam: Clear to Ausculation Bilateral, NORMAL BREATHING PATTERN - Cardiovascular Exam Cardiovascular Exam: RRR, +S1, +S2 - GI/Abdominal Exam GI & Abdominal Exam: Soft, Tenderness (generalized lower quadrants). absent: Mass, Organomegaly - Extremities Exam Extremities Exam: Normal Capillary Refill. absent: Calf Tenderness - Back Exam Back Exam: absent: CVA tenderness (L), CVA tenderness (R) - Neurological Exam Neurological Exam: Alert, Awake - Psychiatric Exam Psychiatric exam: Normal Affect, Normal Mood - Skin Skin Exam: Dry, Warm Assessment and Plan - Assessment and Plan (Free Text) Plan: 41 y/o male with MHx/SHx significant for episodes of SBO requiring surgeries in the past. Per his , developed abd pain this morning and 4 episodes of nb/nb vomiting. Not able to take PO. Denies f/c/diarrhea. Last BM this AM. He has not been on any narcotics or any other new medications recently. After admission patient became febrile, hypotensive, leukocytosis, sepsis 2/[address] also +possible partial SBO vs ileus. Patient responded well to fluid resuscitation. Patient has been passing gas, and his last BM was yesterday morning. Patient no longer nauseated, no emesis. Improved today. Consider downgrading to Medsurg tomorrow if HD stable. Sepsis secondary to multifocal enteritis continue Zosyn, had allergies to cipro and flagyl in the past. WBC trending down, HD stable, afebrile pain improving procalcitonin level for tomorrow continue to monitor until tomorrow, consider downgrading to medsurg if HD stable Small bowel obstruction Partial SBO vs. Ileus NPO, IVF Morphine for pain PRN IV, Zofran for nausea IV Surgery, Dr. Hampton consulted, no surgical intervention at this time Encourage ambulation Serial abdominal exams DVT prophylaxis
--- NOTE | 2017-02-16 17:33 | CARD ---
APPROVED REPORT EKG Measurement Heart [id number] <Conclusion> Sinus bradycardia Otherwise normal ECG
[2017-02-16] MEDS ORDERED: Piperacillin/Tazobact 3.375 GM in Sodium Chloride 0.9% 100 ML IVPB SCH (23:50)
[2017-02-17] MEDS: Piperacillin/Tazobact 3.375 GM in Sodium Chloride 0.9% 100 ML IVPB SCH ×2 (05:00→12:42)
[2017-02-17 05:31] LABS: HEMATOCRIT 33.9 % (35.0-51.0); MEAN CELL VOLUME 88.8 fl (80.0-94.0); MEAN CORPUSCULAR HEMOGLOBIN 29.2 pg (27.0-31.0); MEAN CORPUSCULAR HGB CONC 32.9 g/dL (33.0-37.0); RED CELL DISTRIBUTION WIDTH 12.8 % (11.5-14.5); WHITE BLOOD COUNT 8.2 K/uL (4.8-10.8)
[2017-02-17 05:44] LABS: BLOOD UREA NITROGEN 6 mg/dl (9-20); CALCIUM 8.3 mg/dL (8.4-10.2); CARBON DIOXIDE 27 mmol/L (22-30); CHLORIDE 105 mmol/L (98-107); GFR AFRICAN-AMERICAN > 60; GLUCOSE,RANDOM 86 mg/dL (75-110); MAGNESIUM 1.9 MG/DL (1.6-2.3); PHOSPHOROUS 3.3 mg/dl (2.5-4.5); POTASSIUM 3.6 MMOL/L (3.6-5.0); SODIUM 141 mmol/l (132-148)
--- NOTE | 2017-02-17 07:42 | CP.PCM.PN ---
<Stacie Darling - Last Filed: 02/17/17 08:02> Subjective - Date & Time of Evaluation Date of Evaluation: 02/17/17 Time of Evaluation: 06:30 - Subjective Subjective: Pt s/e at bedside in the ICU this AM. GERALDOEO. Patient says he has very mild abdominal pain but no other symptoms and tolerated the CLD yesterday. States he did not ambulate yesterday but is feeling better today and will do so. Still passing gas Objective - Vital Signs/Intake and Output Vital Signs (last 24 hours): Temp Pulse Resp BP Pulse Ox 97.9 F 66 16 113/65 100 02/17/17 04:00 02/17/17 05:55 02/17/17 05:55 02/17/17 05:55 02/17/17 05:55 Intake and Output: 02/17/17 02/17/17 06:59 18:59 Intake Total 2200 Output Total 1800 Balance 400 - Medications Medications: Current Medications Acetaminophen (Tylenol 650 Mg Supp) 650 mg [place] Q6 PRN PRN Reason: Fever >100.4 F Last Admin: 02/15/17 23:08 Dose: 650 mg Famotidine (Pepcid) 20 mg IVP Q12 [facility] Last Admin: 02/16/17 20:38 Dose: 20 mg Piperacillin Sod/Tazobactam (Sod 3.375 gm/ Sodium Chloride) 100 mls @ 100 mls/ hr IVPB 0000,0600,1200,1800 [facility] Last Admin: 02/17/17 05:00 Dose: 100 mls/hr Ketorolac Tromethamine (Toradol) 30 mg IVP Q6 PRN PRN Reason: Pain, moderate (4-7) Last Admin: 02/16/17 10:27 Dose: 30 mg Morphine Sulfate (Morphine) 1 mg IVP Q4 PRN PRN Reason: Pain, Mild (1-3) Morphine Sulfate (Morphine) 2 mg IVP Q4 PRN PRN Reason: Pain, moderate (4-7) Last Admin: 02/15/17 23:44 Dose: 2 mg Ondansetron HCl (Zofran Inj) 4 mg IVP Q4H PRN PRN Reason: Nausea/Vomiting - Labs Labs: 02/17/17 04:45 02/17/17 04:45 - Constitutional Appears: Well, Non-toxic, No Acute Distress - Head Exam Head Exam: ATRAUMATIC, NORMOCEPHALIC - Eye Exam Eye Exam: Normal appearance. absent: Conjunctival injection, Scleral icterus - ENT Exam ENT Exam: Mucous Membranes Moist, Normal Oropharynx - Respiratory Exam Respiratory Exam: NORMAL BREATHING PATTERN. absent: Accessory Muscle Use, Respiratory Distress - Cardiovascular Exam Cardiovascular Exam: RRR - GI/Abdominal Exam GI & Abdominal Exam: Soft. absent: Distended, Tenderness - Extremities Exam Extremities Exam: absent: Calf Tenderness, Pedal Edema, Tenderness - Neurological Exam Neurological Exam: Alert, Awake, Oriented x3 - Psychiatric Exam Psychiatric exam: Normal Affect, Normal Mood - Skin Skin Exam: Dry, Intact, Normal Color, Warm Assessment and Plan - Assessment and Plan (Free Text) Assessment: 41M with PMH of small bowel resection with abdominal pain and fevers Afebrile, VSS No abdominal complaints, tolerating CLD No leukocytosis Plan: -No indication for surgery -Continue antibiotics -Serial abdominal exams -FLD this AM, advance as tolerated -Encourage ambulation -Patient may be downgraded from the ICU from a surgical standpoint Further recs per Dr. Dheeraj Darling, PGY1 <Thaddeus Amaro - Last Filed: 02/18/17 12:58> Objective - Vital Signs/Intake and Output Vital Signs (last 24 hours): Temp Pulse Resp BP Pulse Ox 98.6 F 76 20 122/69 100 02/17/17 15:50 02/17/17 15:50 02/17/17 15:50 02/17/17 15:50 02/17/17 15:50 - Labs Labs: 02/17/17 04:45 02/17/17 04:45 Attending/Attestation - Attestation I have personally seen and examined this patient.: Yes I have fully participated in the care of the patient.: Yes I have reviewed all pertinent clinical information, including history, physical exam and plan: Yes Notes (Text): 02/18/17 12:57 Pt was seen and examined at bedside on 02/17/17 Agree with above note and assessment Pt with resolved enteritis and abdominal pain No need for surgical intervention at present. f.U as out pt Plan d.w pt in detail. Risk and benefit explained in detail.
--- NOTE | 2017-02-17 12:12 | CP.PCM.DIS ---
Provider - Provider Date of Admission: 02/16/17 04:34 Attending physician: Castro Mi MD Consults: Surgery : dr Amaro Time Spent in preparation of Discharge (in minutes): 35 Diagnosis - Discharge Diagnosis (1) Enteritis Status: Acute (2) Small bowel obstruction Status: Acute (3) Sepsis Status: Acute Hospital Course - Lab Results Lab Results: Most Recent Lab Values WBC 8.2 K/uL (4.8-10.8) 02/17/17 04:45 RBC 3.82 Mil/uL (4.40-5.90) L 02/17/17 04:45 Hgb 11.2 g/dL (12.0-18.0) L 02/17/17 04:45 Hct 33.9 % (35.0-51.0) L 02/17/17 04:45 MCV 88.8 fl (80.0-94.0) 02/17/17 04:45 MCH 29.2 pg (27.0-31.0) 02/17/17 04:45 MCHC 32.9 g/dL (33.0-37.0) L 02/17/17 04:45 RDW 12.8 % (11.5-14.5) 02/17/17 04:45 Plt Count 244 K/uL (130-400) 02/17/17 04:45 MPV 9.1 fl (7.2-11.7) 02/16/17 07:21 Neut % (Auto) 71.1 % (50.0-75.0) 02/16/17 07:21 Lymph % (Auto) 15.2 % (20.0-40.0) L 02/16/17 07:21 [place] % (Auto) 12.0 % (0.0-10.0) H 02/16/17 07:21 Eos % (Auto) 1.0 % (0.0-4.0) 02/16/17 07:21 Baso % (Auto) 0.7 % (0.0-2.0) 02/16/17 07:21 Neut # 7.4 K/uL (1.8-7.0) H 02/16/17 07:21 Lymph # 1.6 K/uL (1.0-4.3) 02/16/17 07:21 [place] # 1.2 K/uL (0.0-0.8) H 02/16/17 07:21 Eos # 0.1 K/uL (0.0-0.7) 02/16/17 07:21 Baso # 0.1 K/uL (0.0-0.2) 02/16/17 07:21 Neutrophils % (Manual) 83 % (42-75) H 02/15/17 18:06 Band Neutrophils % 3 % (0-2) H 02/15/17 18:06 Lymphocytes % (Manual) 8 % (20-50) L 02/15/17 18:06 Monocytes % (Manual) 6 % (0-10) 02/15/17 18:06 Platelet Estimate Normal (NORMAL) 02/15/17 18:06 Large Platelets Present 02/15/17 18:06 Giant Platelets Present 02/15/17 18:06 Anisocytosis (manual) Slight 02/15/17 18:06 Tear Drop Cells Slight 02/15/17 18:06 Ovalocytes Slight 02/15/17 18:06 Sodium 141 mmol/l (132-148) 02/17/17 04:45 Potassium 3.6 MMOL/L (3.6-5.0) 02/17/17 04:45 Chloride 105 mmol/L (98-107) 02/17/17 04:45 Carbon Dioxide 27 mmol/L (22-30) 02/17/17 04:45 Anion Gap 12 (10-20) 02/17/17 04:45 BUN 6 mg/dl (9-20) L 02/17/17 04:45 Creatinine 0.7 mg/dL (0.8-1.5) L 02/17/17 04:45 Est GFR ( Amer) > 60 02/17/17 04:45 Est GFR (Non-Af Amer) > 60 02/17/17 04:45 Random Glucose 86 mg/dL (75-110) 02/17/17 04:45 Lactic Acid 0.7 MMOL/L (0.7-2.1) 02/16/17 07:21 Calcium 8.3 mg/dL (8.4-10.2) L 02/17/17 04:45 Phosphorus 3.3 mg/dl (2.5-4.5) 02/17/17 04:45 Magnesium 1.9 MG/DL (1.6-2.3) 02/17/17 04:45 Total Bilirubin 0.9 mg/dl (0.2-1.3) 02/15/17 18:06 AST 25 U/L (17-59) 02/15/17 18:06 ALT 33 U/L (21-72) 02/15/17 18:06 Alkaline Phosphatase 88 U/L (38-126) 02/15/17 18:06 Total Protein 6.7 G/DL (6.3-8.2) 02/15/17 18:06 Albumin 3.6 g/dL (3.5-5.0) 02/15/17 18:06 Globulin 3.1 gm/dL (2.2-3.9) 02/15/17 18:06 Albumin/Globulin Ratio 1.2 (1.0-2.1) 02/15/17 18:06 Lipase 24 U/L (23-300) 02/15/17 18:06 Urine Color Yellow (YELLOW) 02/15/17 22:40 Urine Clarity Turbid (Clear) 02/15/17 22:40 Urine pH 5.0 (5.0-8.0) 02/15/17 22:40 Ur Specific [place] 1.028 (1.003-1.030) 02/15/17 22:40 Urine Protein 30 mg/dL (NEGATIVE) 02/15/17 22:40 Urine Glucose (UA) Neg mg/dL (Normal) 02/15/17 22:40 Urine Ketones Negative mg/dL (NEGATIVE) 02/15/17 22:40 Urine Blood Negative (NEGATIVE) 02/15/17 22:40 Urine Nitrate Negative (NEGATIVE) 02/15/17 22:40 Urine Bilirubin Negative (NEGATIVE) 02/15/17 22:40 Urine Urobilinogen 2.0 mg/dL (0.2-1.0) 02/15/17 22:40 Ur Leukocyte Esterase Neg [place]/uL (Negative) 02/15/17 22:40 Urine RBC (Auto) 2 /hpf (0-3) 02/15/17 22:40 Urine WBC Clumps (Auto) Few /hpf (NONE) H 02/15/17 22:40 Urine Microscopic WBC 46 /hpf (0-5) H 02/15/17 22:40 Ur Squamous Epith Cells < 1 /hpf (0-5) 02/15/17 17:10 Urine Bacteria Rare (<OCC) 02/15/17 17:10 Urine Yeast (Budding) Few /hpf (NEGATIVE) H 02/15/17 22:40 - Hospital Course Hospital Course: 41 y/o male with MHx/SHx significant for episodes of SBO requiring surgeries in the past. Per his , developed abd pain on the morning of admission and several episodes of vomiting and not able to take PO. Last BM this AM. He has not been on any narcotics or any other new medications recently. After admission patient became febrile, hypotensive, leukocytosis, sepsis 2/[address] also +possible partial SBO vs ileus. Patient responded well to fluid resuscitation. Surgery was consulted. Patient's condition improved , he has been passing gas, and had BM this morning. Patient no longer nauseated, no emesis and is tolerating Regular diet. Sepsis secondary to multifocal enteritis (POA) - received IV Zosyn - IVF hydration -WBC trended down, VS stable, afebrile -Pain resolved - pt states he is not allergic to Cipro nor Flagyl - will d/c pt home on PO Augmentin and Flagyl Partial Small bowel obstruction , resolved -Morphine for pain PRN IV, Zofran for nausea IV -Surgery, Dr. Hampton consulted, no surgical intervention at this time- cleared pt for disxcharge -Encourage ambulation - tolerating Regular diet Discharge Exam - Head Exam Head Exam: ATRAUMATIC, NORMAL INSPECTION, NORMOCEPHALIC - Eye Exam Eye Exam: EOMI, Normal appearance, PERRL Pupil Exam: NORMAL ACCOMODATION - ENT Exam ENT Exam: Mucous Membranes Moist, Normal External Ear Exam - Neck Exam Neck exam: Full Rom - Respiratory Exam Respiratory Exam: NORMAL BREATHING PATTERN. absent: Respiratory Distress - Cardiovascular Exam Cardiovascular Exam: REGULAR RHYTHM, +S1, +S2 - GI/Abdominal Exam GI & Abdominal Exam: Normal Bowel Sounds, Soft. absent: Tenderness - Extremities Exam Extremities exam: full ROM, normal capillary refill, pedal pulses present - Back Exam Back exam: FULL ROM. absent: CVA tenderness (L), CVA tenderness (R) - Neurological Exam Neurological exam: Alert, CN II-XII Intact, Oriented x3, Reflexes Normal - Psychiatric Exam Psychiatric exam: Normal Affect, Normal Mood - Skin Skin Exam: Dry, Normal Color, Warm Discharge Plan - Discharge Medications Prescriptions: Amoxicillin/Clavulanate [Augmentin 875 MG-125 MG] 1 tab PO BID #8 tab Metronidazole [Flagyl] 500 mg PO TID #15 tablet - Follow Up Plan Condition: GOOD Disposition: HOME/ ROUTINE Additional Instructions: GI clinic appt tay for further GI work up appt [facility] in 1 wk Referrals: [facility] [Outside]
[2017-02-17 14:54] VITALS: RESP 20
[2017-02-17 15:51] VITALS: BP 122/69; PULSE 76; TEMP 98.6
[2017-02-19 13:05] VITALS: O2SAT 98
== END 2017-02-17 17:00 | disposition home or self-care (01) | DRG 901 ==
LOC: H.ER 16:12 → H.ERHOLD 20:30 → OBSVTOIN 02-16 04:34 → H.ICU/CCU 02-16 05:25
PROVIDERS: ADMIT Internal Medicine; ATTEND Internal Medicine
DX: A41.9 Sepsis, unspecified organism (principal); K56.60 Unspecified intestinal obstruction; E86.0 Dehydration; E86.1 Hypovolemia; K52.9 Noninfective gastroenteritis and colitis, unspecified

== ENCOUNTER 2017-10-07 12:26 | Inpatient (IN) | payer OTHER ==
[2017-10-07 12:31] VITALS: BMI 23.6
[2017-10-07] MEDS ORDERED: Morphine 4 MG/ML VIAL IV STA (13:27)
[2017-10-07] MEDS ORDERED: Iohexol 240 (50 ml) PO STA (13:28)
[2017-10-07] MEDS ORDERED: Sodium Chloride 0.9% 1,000 ML IV STA (13:29)
[2017-10-07] MEDS ORDERED: Iohexol 240 (50 ml) ONE (13:51)
[2017-10-07] MEDS ORDERED: Morphine 4 MG/ML VIAL ONE (13:52)
[2017-10-07 14:48] LABS: BASO # 0.1 K/uL (0.0-0.2); BASO % 0.3 % (0.0-2.0); EOS % 0.2 % (0.0-4.0); HEMOGLOBIN 13.2 g/dL (12.0-18.0); LYMPH # 1.3 K/uL (1.0-4.3); LYMPH % 8.3 % (20.0-40.0); MEAN CELL VOLUME 89.7 fl (80.0-94.0); MEAN CORPUSCULAR HEMOGLOBIN 29.2 pg (27.0-31.0); MEAN CORPUSCULAR HGB CONC 32.6 g/dL (33.0-37.0); MEAN PLATELET VOLUME 9.7 fl (7.2-11.7); MONO % 6.1 % (0.0-10.0); NEUT # 13.8 K/uL (1.8-7.0); NEUT % 85.1 % (50.0-75.0); PLATELET COUNT 330 K/uL (130-400); RBC 4.51 Mil/uL (4.40-5.90); RED CELL DISTRIBUTION WIDTH 13.1 % (11.5-14.5); WHITE BLOOD COUNT 16.2 K/uL (4.8-10.8)
[2017-10-07 14:51] LABS: ALB/GLOB RATIO 1.1 (1.0-2.1); ALBUMIN 3.6 g/dL (3.5-5.0); ALT/SGPT 31 U/L (21-72); AST/SGOT 21 U/L (17-59); BLOOD UREA NITROGEN 12 mg/dl (9-20); CALCIUM 9.1 mg/dL (8.4-10.2); GFR AFRICAN-AMERICAN > 60; GFR NON-AFRICAN AMERICAN > 60
[2017-10-07 14:56] LABS: INR 1.1 (0.9-1.2); PARTIAL THROMBOPLASTIN TIME 39.3 Seconds (25.6-37.1); PROTHROMBIN TIME 11.8 Seconds (9.8-13.1)
[2017-10-07 16:04] LABS: LYMPHOCYTE 9 % (20-50); MONOCYTE 6 % (0-10); NEUTROPHIL 85 % (42-75); PLATELET ESTIMATE NORMAL (NORMAL); TOTAL CELLS COUNTED 100
[2017-10-07] MEDS ORDERED: Sodium Chloride 0.9% 50 ML IV ONE (16:34)
[2017-10-07] MEDS ORDERED: Iohexol 300 100 ML IJ ONE (16:35)
--- NOTE | 2017-10-07 17:35 | CT ---
PROCEDURE: CT Abdomen and Pelvis with contrast HISTORY: abdominal pain, vomiting, history of prior bowel obstruction. COMPARISON: 02/15/2017. TECHNIQUE: Contrast dose: 99 cc Omnipaque 300 Radiation dose: Total exam DLP = 689.65 mGy-cm. This CT exam was performed using one or more of the following dose reduction techniques: Automated exposure control, adjustment of the mA and/or kV according to patient size, and/or use of iterative reconstruction technique. FINDINGS: LOWER THORAX: Unremarkable. LIVER: Unremarkable. No gross lesion or ductal dilatation. GALLBLADDER AND BILE DUCTS: Unremarkable. PANCREAS: Unremarkable. No gross lesion or ductal dilatation. SPLEEN: Unremarkable. ADRENALS: Unremarkable. No mass. KIDNEYS AND URETERS: Unremarkable. No hydronephrosis. No solid mass. VASCULATURE: Unremarkable. No aortic aneurysm. BOWEL: Dilated small bowel with associated "Whirl sign" the findings are is highly suspicious for closed loop obstruction. Distal small bowel, colon are unremarkable pocket and constipation APPENDIX: Normal appendix. PERITONEUM: Trace fluid in the pelvis. LYMPH NODES: Unremarkable. No enlarged lymph nodes. BLADDER: Unremarkable. REPRODUCTIVE: Unremarkable. BONES: No acute fracture. OTHER FINDINGS: None. IMPRESSION: Distended loops of small bowel associated with "Oral sign" consistent with closed loop obstruction. Communication of results: I discussed findings directly with the physician perinatal breastfeeding assistant involved in the care and management this individual Vanessa Steen PA-C. Verbal results provided at 17:26
--- NOTE | 2017-10-07 17:42 | ED PDOC ---
HPI: Abdomen Time Seen by Provider: 10/07/17 13:04 Chief Complaint (Nursing): Abdominal Pain Chief Complaint (Provider): Abdominal pain, vomiting since this morning History Per: Patient History/Exam Limitations: no limitations Onset/Duration Of Symptoms: Hrs Outside of [place] travel?: No Current Symptoms Are (Timing): Still Present Severity: Severe Pain Scale Rating Of: 10 Location Of Pain/Discomfort: LUQ, LLQ Quality Of Discomfort: Sharp, Cramping Associated Symptoms: Nausea, Vomiting, Loss Of Appetite, Other (Pt reports last BM yesterdat ). denies: Fever, Chills, Diarrhea Exacerbating Factors: None Alleviating Factors: None Past Medical History Reviewed: Historical Data, Nursing Documentation, Vital Signs Vital Signs: Last Vital Signs Temp 98.2 F 10/07/17 18:40 Pulse 70 10/07/17 18:40 Resp 17 10/07/17 12:32 BP 124/69 10/07/17 18:40 Pulse Ox 98 10/07/17 18:40 - Medical History PMH: Obstructive Bowel Denies: Crohn's Disease, HIV, Chronic Kidney Disease - Surgical History Other surgeries: SBO, secondary repair - Family History Family History: States: Unknown Family Hx - Living Arrangements Living Arrangements: With Family - Home Medications Home Medications: Ambulatory Orders Medication Instructions Recorded No Known Home Med 10/07/17 - Allergies Allergies/Adverse Reactions: Allergies Allergy/AdvReac Type Severity Reaction Status Date / Time No Known Allergies Allergy Verified 10/07/17 12:31 Review of Systems ROS Statement: Except As Marked, All Systems Reviewed And Found Negative Constitutional: Negative for: Fever, Chills Gastrointestinal: Positive for: Nausea, Vomiting, Abdominal Pain Physical Exam - Reviewed Nursing Documentation Reviewed: Yes Vital Signs Reviewed: Yes - Physical Exam Appears: Positive for: Well, Non-toxic, No Acute Distress Head Exam: Positive for: ATRAUMATIC, NORMAL INSPECTION, NORMOCEPHALIC Skin: Positive for: Normal Color, Warm, DRY Eye Exam: Positive for: Normal appearance ENT: Positive for: Normal ENT Inspection Neck: Positive for: Normal, Painless ROM Cardiovascular/Chest: Positive for: Regular Rate, Rhythm Respiratory: Positive for: Normal Breath Sounds. Negative for: Accessory Muscle Use, Respiratory Distress Gastrointestinal/Abdominal: Positive for: Bowel Sounds, Soft, Tenderness, Distended. Negative for: Normal Exam, Guarding Back: Positive for: Normal Inspection Extremity: Positive for: Normal ROM Neurologic/Psych: Positive for: Alert, Oriented - Laboratory Results Result Diagrams: 10/07/17 14:16 10/07/17 14:16 - ECG O2 Sat by Pulse Oximetry: 100 Medical Decision Making Medical Decision Making: (+) closed loop obstruction on CT scan. Discussed with certified surgical technician. ELevated WBC discussed with certified surgical technician. Disposition - Clinical Impression Clinical Impression: Small bowel obstruction - Patient ED Disposition Is Patient to be Admitted: Yes Counseled Patient/Family Regarding: Diagnosis, Need For Followup - Disposition Disposition Time: 16:28 Condition: GOOD
--- NOTE | 2017-10-07 19:22 | CP.PCM.CON ---
History of Present Illness - History of Present Illness History of Present Illness: General Surgery Dr. Albert 42 y/o M w/ PMHx of SBO presents to the ED c/o abd pain. Pt is Albanian-speaking , is present at bedside providing translation. Pt reports pain began ~9am this morning. Pain similar to last episode of SBO which occurred in January,. Pt admits to multiple episodes of NBNB vomiting. Pt reports last BM was yesterday and was normal. Pt denies F/C, D/C, headache, dysuria. PMHx: SBO Meds: reviewed in chart NKDA PSHx: small bowel surgery x2 (2012, 2013) SHx: denies tobacco, EtOH, drug use FHx: noncontributory Review of Systems - Review of Systems All systems: reviewed and no additional remarkable complaints except (see HPI) Past Patient History - Infectious Disease Hx of Infectious Diseases: None - Tetanus Immunizations Tetanus Immunization: Unknown - Past Medical History & Family History Past Medical History?: Yes - Past Social History Smoking Status: Never Smoked - CARDIAC Hx Cardiac Disorders: No - PULMONARY Hx Respiratory Disorders: No - NEUROLOGICAL Hx Neurological Disorder: No - HEENT Hx HEENT Problems: No - RENAL Hx Chronic Kidney Disease: No - ENDOCRINE/METABOLIC Hx Endocrine Disorders: No - HEMATOLOGICAL/ONCOLOGICAL Hx Human Immunodeficiency Virus (HIV): No - INTEGUMENTARY Hx Dermatological Problems: No - MUSCULOSKELETAL/RHEUMATOLOGICAL Hx Falls: No - GASTROINTESTINAL Hx Crohn's Disease: No - GENITOURINARY/GYNECOLOGICAL Hx Genitourinary Disorders: No - PSYCHIATRIC Hx Substance Use: No - SURGICAL HISTORY Hx Surgeries: Yes Other/Comment: SB resection x 2 (2012 & 2013) - ANESTHESIA Hx Anesthesia: Yes Hx Anesthesia Reactions: No Hx Malignant Hyperthermia: No Meds Allergies/Adverse Reactions: Allergies Allergy/AdvReac Type Severity Reaction Status Date / Time No Known Allergies Allergy Verified 10/07/17 12:31 Physical Exam - Constitutional Appears: Non-toxic, No Acute Distress - Head Exam Head Exam: NORMAL INSPECTION - Eye Exam Eye Exam: Normal appearance - ENT Exam ENT Exam: Mucous Membranes Moist - Respiratory Exam Respiratory Exam: NORMAL BREATHING PATTERN. absent: Accessory Muscle Use, Respiratory Distress - Cardiovascular Exam Cardiovascular Exam: absent: Bradycardia, Tachycardia - GI/Abdominal Exam GI & Abdominal Exam: Firm (LUQ), Tenderness (TTP LUQ). absent: Distended, Guarding, Hernia, Rigid Additional comments: umbilical midline scar present - Extremities Exam Extremities exam: Positive for: normal inspection - Neurological Exam Neurological exam: Alert, Oriented x3 - Psychiatric Exam Psychiatric exam: Normal Affect, Normal Mood - Skin Skin Exam: Dry, Intact, Normal Color, Warm Results - Vital Signs Recent Vital Signs: Last Vital Signs Temp 98.2 F 10/07/17 18:40 Pulse 70 10/07/17 18:40 Resp 17 10/07/17 12:32 BP 124/69 10/07/17 18:40 Pulse Ox 98 10/07/17 18:40 - Labs Result Diagrams: 10/07/17 14:16 10/07/17 14:16 Labs: Laboratory Results - last 24 hr 10/07/17 10/07/17 10/07/17 14:16 14:16 14:16 WBC 16.2 H D RBC 4.51 Hgb 13.2 D Hct 40.4 MCV 89.7 MCH 29.2 MCHC 32.6 L RDW 13.1 Plt Count 330 MPV 9.7 Neut % (Auto) 85.1 H Lymph % (Auto) 8.3 L [place] % (Auto) 6.1 Eos % (Auto) 0.2 Baso % (Auto) 0.3 Neut # (Auto) 13.8 H Lymph # (Auto) 1.3 [place] # (Auto) 1.0 H Eos # (Auto) 0.0 Baso # (Auto) 0.1 Neutrophils % (Manual) 85 H Lymphocytes % (Manual) 9 L Monocytes % (Manual) 6 Platelet Estimate Normal RBC Morphology Normal PT 11.8 INR 1.1 APTT 39.3 H Sodium 144 Potassium 3.9 Chloride 103 Carbon Dioxide 30 Anion Gap 15 BUN 12 Creatinine 0.6 L Est GFR ( Amer) > 60 Est GFR (Non-Af Amer) > 60 Random Glucose 96 Calcium 9.1 Total Bilirubin 0.6 AST 21 ALT 31 Alkaline Phosphatase 89 Total Protein 7.0 Albumin 3.6 Globulin 3.4 Albumin/Globulin Ratio 1.1 - Imaging and Cardiology CT scan - abdomen Status: Image reviewed by me, Report reviewed by me Assessment & Plan - Assessment and Plan (Free Text) Assessment: 42 y/o M w/ abd pain 2/2 closed-loop SBO - NPO, IVF - IV Abx - NGT if vomiting develops - Monitor vitals - serial abd exams - pain management - anti-emetic - conservative management - may need surgery if pt decompensates Pt discussed w/ Dr. Roosevelt Rodas DO PGY2
[2017-10-07] MEDS ORDERED: HYDROmorphone 1 mg/ml ISec IVP PRN (19:27)
--- NOTE | 2017-10-07 19:58 | CP.PCM.HP ---
History of Present Illness - History of Present Illness History of Present Illness: 42 yo ,m, PMhx/o SBO(last episode 01/2017) presents to the ED c/o abdominal pain started this morning 10 AM, intermittent, over LLQ and left flank, 9/10 intensity, not radiated, associated with nonbillious, nonbloddy vomiting x 4. He denies fever, diarrhea, abd trauma, cough, chest pain, SOB. Las BM yesterday normal. Patient reports that abdominal pain partially subsided with morphine and denies pain during my evaluation. PMD: At [facility]. PMHX: SBO Allergies: NKDA Meds: None PSurghx: for SBO x 2, 2012 and 2013; Dental surgery PFhx: non contributory PShx: No ETOH,rect drugs, cig ED course VS: normal Labs: CBC 16.2>13.2<330 CMP normal Imaging: CT ABd: Distended loops of small bowel associated with closed loop obstruction Meds: Morphine 4 mg IV, Zofran, Iv fluids NS 1 l, Zosyn 3.375 IV Present on Admission - Present on Admission Any Indicators Present on Admission: No History of DVT/PE: No History of Uncontrolled Diabetes: No Urinary Catheter: No Review of Systems - Constitutional Constitutional: As Per HPI - Cardiovascular Cardiovascular: As Per HPI - Respiratory Respiratory: As Per HPI - Gastrointestinal Gastrointestinal: Abdominal Pain, Vomiting - Integumentary Integumentary: As Per HPI Past Patient History - Infectious Disease Hx of Infectious Diseases: None - Tetanus Immunizations Tetanus Immunization: Unknown - Past Medical History & Family History Past Medical History?: Yes - Past Social History Smoking Status: Never Smoked - CARDIAC Hx Cardiac Disorders: No - PULMONARY Hx Respiratory Disorders: No - NEUROLOGICAL Hx Neurological Disorder: No - HEENT Hx HEENT Problems: No - RENAL Hx Chronic Kidney Disease: No - ENDOCRINE/METABOLIC Hx Endocrine Disorders: No - HEMATOLOGICAL/ONCOLOGICAL Hx Human Immunodeficiency Virus (HIV): No - INTEGUMENTARY Hx Dermatological Problems: No - MUSCULOSKELETAL/RHEUMATOLOGICAL Hx Falls: No - GASTROINTESTINAL Hx Crohn's Disease: No - GENITOURINARY/GYNECOLOGICAL Hx Genitourinary Disorders: No - PSYCHIATRIC Hx Substance Use: No - SURGICAL HISTORY Hx Surgeries: Yes Other/Comment: SB resection x 2 (2012 & 2013) - ANESTHESIA Hx Anesthesia: Yes Hx Anesthesia Reactions: No Hx Malignant Hyperthermia: No Meds Allergies/Adverse Reactions: Allergies Allergy/AdvReac Type Severity Reaction Status Date / Time No Known Allergies Allergy Verified 10/07/17 12:31 Physical Exam - Constitutional Appears: Toxic, No Acute Distress - Head Exam Head Exam: ATRAUMATIC, NORMOCEPHALIC - Eye Exam Eye Exam: Normal appearance - ENT Exam ENT Exam: Mucous Membranes Moist - Respiratory Exam Respiratory Exam: Clear to Auscultation Bilateral. absent: Rales, Wheezes - Cardiovascular Exam Cardiovascular Exam: REGULAR RHYTHM, +S1, +S2 - GI/Abdominal Exam GI & Abdominal Exam: Normal Bowel Sounds, Soft. absent: Guarding, Tenderness - Extremities Exam Extremities exam: Positive for: normal inspection. Negative for: pedal edema - Neurological Exam Neurological exam: Alert, Oriented x3 - Psychiatric Exam Psychiatric exam: Normal Affect, Normal Mood - Skin Skin Exam: Intact Results - Vital Signs Recent Vital Signs: Last Vital Signs Temp 98.2 F 10/07/17 18:40 Pulse 70 10/07/17 18:40 Resp 17 10/07/17 12:32 BP 124/69 10/07/17 18:40 Pulse Ox 100 10/07/17 19:29 - Labs Result Diagrams: 10/07/17 14:16 10/07/17 14:16 Labs: Laboratory Results - last 24 hr 10/07/17 10/07/17 10/07/17 14:16 14:16 14:16 WBC 16.2 H D RBC 4.51 Hgb 13.2 D Hct 40.4 MCV 89.7 MCH 29.2 MCHC 32.6 L RDW 13.1 Plt Count 330 MPV 9.7 Neut % (Auto) 85.1 H Lymph % (Auto) 8.3 L [place] % (Auto) 6.1 Eos % (Auto) 0.2 Baso % (Auto) 0.3 Neut # (Auto) 13.8 H Lymph # (Auto) 1.3 [place] # (Auto) 1.0 H Eos # (Auto) 0.0 Baso # (Auto) 0.1 Neutrophils % (Manual) 85 H Lymphocytes % (Manual) 9 L Monocytes % (Manual) 6 Platelet Estimate Normal RBC Morphology Normal PT 11.8 INR 1.1 APTT 39.3 H Sodium 144 Potassium 3.9 Chloride 103 Carbon Dioxide 30 Anion Gap 15 BUN 12 Creatinine 0.6 L Est GFR ( Amer) > 60 Est GFR (Non-Af Amer) > 60 Random Glucose 96 Calcium 9.1 Total Bilirubin 0.6 AST 21 ALT 31 Alkaline Phosphatase 89 Total Protein 7.0 Albumin 3.6 Globulin 3.4 Albumin/Globulin Ratio 1.1 Assessment & Plan - Assessment and Plan (Free Text) Plan: 42 yo ,m, PMhx/o SBO presents to the ED c/o abdominal pain and vomiting. Patient admitted for small bowel obstruction Assessment/Plan 1 ) Small Bowel Obstruction -closed loop SBO -NPO, IV fluids -IV abx Zosyn -Zofran PRN vomiting -NGT if persistent vomiting. -Surgery consult appreciated: May need surgery if patient decompensates. 2) DVT Prophylaxis SCD. Possible Surgery
[2017-10-07] MEDS ORDERED: Piperacillin/Tazobact 3.375 gm Inj IVPB ONE (21:19)
[2017-10-07] MEDS: Piperacillin/Tazobact 3.375 GM in Sodium Chloride 0.9% 100 ML IVPB SCH (21:20)
[2017-10-07] MEDS: Sodium Chloride 0.9% 1,000 ML IV SCH (22:39)
[2017-10-08] MEDS: Piperacillin/Tazobact 3.375 GM in Sodium Chloride 0.9% 100 ML IVPB SCH ×4 (03:29→20:59)
[2017-10-08] MEDS: Sodium Chloride 0.9% 1,000 ML IV SCH ×2 (03:30→12:05)
[2017-10-08] MEDS ORDERED: Influenza Vaccine 18yr & older 0.5 ML/45 MCG SYR IM ONE (06:00)
[2017-10-08 06:42] LABS: BASO # 0.1 K/uL (0.0-0.2); BASO % 0.8 % (0.0-2.0); EOS # 0.1 K/uL (0.0-0.7); EOS % 1.5 % (0.0-4.0); HEMOGLOBIN 11.4 g/dL (12.0-18.0); LYMPH # 1.7 K/uL (1.0-4.3); LYMPH % 17.6 % (20.0-40.0); MEAN CELL VOLUME 89.3 fl (80.0-94.0); MEAN CORPUSCULAR HEMOGLOBIN 29.7 pg (27.0-31.0); MEAN CORPUSCULAR HGB CONC 33.3 g/dL (33.0-37.0); MEAN PLATELET VOLUME 9.5 fl (7.2-11.7); MONO # 0.8 K/uL (0.0-0.8); MONO % 8.5 % (0.0-10.0); NEUT # 6.9 K/uL (1.8-7.0); NEUT % 71.6 % (50.0-75.0); NRBC % 0.1 % (0.0-0.0); RBC 3.82 Mil/uL (4.40-5.90); RED CELL DISTRIBUTION WIDTH 12.7 % (11.5-14.5); WHITE BLOOD COUNT 9.7 K/uL (4.8-10.8)
[2017-10-08 07:38] LABS: ALB/GLOB RATIO 0.9 (1.0-2.1); ALBUMIN 2.7 g/dL (3.5-5.0); ALT/SGPT 28 U/L (21-72); AST/SGOT 16 U/L (17-59); BLOOD UREA NITROGEN 11 mg/dl (9-20); CALCIUM 8.4 mg/dL (8.4-10.2); GFR AFRICAN-AMERICAN > 60; GFR NON-AFRICAN AMERICAN > 60
--- NOTE | 2017-10-08 07:50 | CP.PCM.PN ---
<Jostin Bowens - Last Filed: 10/08/17 12:31> Subjective - Date & Time of Evaluation Date of Evaluation: 10/08/17 Time of Evaluation: 07:50 - Subjective Subjective: Pt seen and examined at bedside: reports significant improvement in symptoms. Denies: abdo pain/n/v/cp/sob. Experiencing flatus. Reports hunger. Objective - Vital Signs/Intake and Output Vital Signs (last 24 hours): Temp Pulse Resp BP Pulse Ox 97.8 F 73 18 101/59 L 98 10/08/17 00:18 10/08/17 00:18 10/08/17 00:18 10/08/17 00:18 10/08/17 00:18 - Medications Medications: Current Medications Hydromorphone HCl (Dilaudid) 1 mg IVP Q3 PRN PRN Reason: Pain, moderate (4-7) Sodium Chloride (Sodium Chloride 0.9%) 1,000 mls @ 125 mls/hr IV .Q8H GEENA Stop: 10/08/17 19:28 Last Admin: 10/08/17 03:30 Dose: Not Given Piperacillin Sod/Tazobactam (Sod 3.375 gm/ Sodium Chloride) 100 mls @ 100 mls/ hr IVPB Q6 GEENA PRN Reason: Protocol Last Admin: 10/08/17 03:29 Dose: 100 mls/hr Ondansetron HCl (Zofran Inj) 4 mg IVP Q4 PRN PRN Reason: Nausea/Vomiting - Labs Labs: 10/08/17 05:25 10/08/17 05:25 PT 11.8 Seconds (9.8-13.1) 10/07/17 14:16 INR 1.1 (0.9-1.2) 10/07/17 14:16 APTT 39.3 Seconds (25.6-37.1) H 10/07/17 14:16 - Constitutional Appears: Well, Non-toxic, No Acute Distress - Eye Exam Eye Exam: EOMI, Normal appearance - ENT Exam ENT Exam: Mucous Membranes Moist - Neck Exam Neck Exam: Full ROM - Respiratory Exam Respiratory Exam: Clear to Ausculation Bilateral, NORMAL BREATHING PATTERN. absent: Wheezes - Cardiovascular Exam Cardiovascular Exam: REGULAR RHYTHM, +S1, +S2 - GI/Abdominal Exam GI & Abdominal Exam: Soft, Normal Bowel Sounds. absent: Distended, Guarding, Tenderness, Rebound - Extremities Exam Extremities Exam: absent: Calf Tenderness - Back Exam Back Exam: absent: CVA tenderness (L), CVA tenderness (R) - Neurological Exam Neurological Exam: Alert, Awake, CN II-XII Intact, Oriented x3 - Psychiatric Exam Psychiatric exam: Normal Affect, Normal Mood Assessment and Plan - Assessment and Plan (Free Text) Plan: 42 yo M PMhx/o SBO presents to the ED c/o abdominal pain and vomiting. Patient admitted for small bowel obstruction Assessment/Plan 1 ) Small Bowel Obstruction -closed loop SBO -Hx of surgical intervention x2 for SBO. Previous surgery: 2/ meckel's -liquid diet started at 09:00 -IV abx Zosyn -Zofran PRN vomiting -NGT if persistent vomiting. -Surgery consult appreciated: May need surgery if patient decompensates. -Pending XR 2) DVT Prophylaxis SCD. Possible Surgery <Danna Fernandez - Last Filed: 10/09/17 09:31> Subjective - Subjective Subjective: ATTESTATION ATTENDING NOTE PATIENT SEEN AND EXAMINED. IMPROVED. ROLLER TO ABD PALPATION, NO GUARDING OR REBOUND. BOWEL SOUNDS PRESENT. CASE DISCUSSED WITH RESIDENT. AGREE WITH FINDINGS AND PLAN. Objective - Vital Signs/Intake and Output Vital Signs (last 24 hours): Temp Pulse Resp BP Pulse Ox 98 F 71 20 108/68 100 10/09/17 08:27 10/09/17 08:27 10/09/17 08:27 10/09/17 08:27 10/09/17 08:27 - Medications Medications: Current Medications Hydromorphone HCl (Dilaudid) 1 mg IVP Q3 PRN PRN Reason: Pain, moderate (4-7) Piperacillin Sod/Tazobactam (Sod 3.375 gm/ Sodium Chloride) 100 mls @ 100 mls/ hr IVPB Q6 GEENA PRN Reason: Protocol Last Admin: 10/09/17 09:15 Dose: 100 mls/hr Ondansetron HCl (Zofran Inj) 4 mg IVP Q4 PRN PRN Reason: Nausea/Vomiting - Labs Labs: 10/08/17 05:25 10/08/17 05:25 PT 11.8 Seconds (9.8-13.1) 10/07/17 14:16 INR 1.1 (0.9-1.2) 10/07/17 14:16 APTT 39.3 Seconds (25.6-37.1) H 10/07/17 14:16
--- NOTE | 2017-10-08 08:20 | CP.PCM.PN ---
Subjective - Date & Time of Evaluation Date of Evaluation: 10/08/17 Time of Evaluation: 08:18 - Subjective Subjective: General Surgery: Dr Albert Pt S&E. Reports he is feeling much better. Passing flatus. Denies N/V, F/C. Abdomen pain has resolved. Distension has resolved. States he is hungry. Abd X-ray ordered for 6AM is still pending. 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 Objective - Vital Signs/Intake and Output Vital Signs (last 24 hours): Temp Pulse Resp BP Pulse Ox 97.7 F 61 19 100/55 L 100 10/08/17 07:56 10/08/17 07:56 10/08/17 07:56 10/08/17 07:56 10/08/17 07:56 - Medications Medications: Current Medications Hydromorphone HCl (Dilaudid) 1 mg IVP Q3 PRN PRN Reason: Pain, moderate (4-7) Sodium Chloride (Sodium Chloride 0.9%) 1,000 mls @ 125 mls/hr IV .Q8H GEENA Stop: 10/08/17 19:28 Last Admin: 10/08/17 03:30 Dose: Not Given Piperacillin Sod/Tazobactam (Sod 3.375 gm/ Sodium Chloride) 100 mls @ 100 mls/ hr IVPB Q6 GEENA PRN Reason: Protocol Last Admin: 10/08/17 03:29 Dose: 100 mls/hr Ondansetron HCl (Zofran Inj) 4 mg IVP Q4 PRN PRN Reason: Nausea/Vomiting - Labs Labs: 10/08/17 05:25 10/08/17 05:25 PT 11.8 Seconds (9.8-13.1) 10/07/17 14:16 INR 1.1 (0.9-1.2) 10/07/17 14:16 APTT 39.3 Seconds (25.6-37.1) H 10/07/17 14:16 - Constitutional Appears: Non-toxic, No Acute Distress - Respiratory Exam Respiratory Exam: absent: Respiratory Distress - Cardiovascular Exam Cardiovascular Exam: REGULAR RHYTHM. absent: Tachycardia - GI/Abdominal Exam GI & Abdominal Exam: Soft, Hypoactive Bowel Sounds. absent: Distended, Firm, Guarding, Rigid, Tenderness - Neurological Exam Neurological Exam: Alert, Awake, Oriented x3 - Psychiatric Exam Psychiatric exam: Normal Affect, Normal Mood - Skin Skin Exam: Normal Color, Warm Assessment and Plan - Assessment and Plan (Free Text) Assessment: 42M with closed loop SBO; resolving Plan: f/u x-rays this morning will consider CLD pending X-ray will d/w Dr Roosevelt Vergara, PGY3
--- NOTE | 2017-10-08 11:51 | RAD ---
HISTORY: SBO COMPARISON: No prior. FINDINGS: BOWEL: Retained oral contrast in the colon. No obstruction. No free air. BONES: Normal. OTHER FINDINGS: Surgical sutures seen in the left mid abdomen. Clear lungs. Cardiomediastinal silhouette within normal limits. IMPRESSION: No active disease.
[2017-10-08] MEDS ORDERED: Pantoprazole 40 mg EC Tab PO ONE (20:17)
[2017-10-09] MEDS: Piperacillin/Tazobact 3.375 GM in Sodium Chloride 0.9% 100 ML IVPB SCH ×2 (03:53→09:15)
[2017-10-09 08:28] VITALS: BP 108/68; PULSE 71; RESP 20; TEMP 98; O2SAT 100
--- NOTE | 2017-10-09 11:48 | CP.PCM.DIS ---
<Andrey Garvin T - Last Filed: 10/09/17 11:51> Provider - Provider Date of Admission: 10/07/17 18:36 Attending physician: Alyssa East MD Consults: Surg- Dr Albert Time Spent in preparation of Discharge (in minutes): 25 Diagnosis - Discharge Diagnosis (1) Small bowel obstruction Status: Acute Hospital Course - Lab Results Lab Results: Most Recent Lab Values WBC 9.7 K/uL (4.8-10.8) 10/08/17 05:25 RBC 3.82 Mil/uL (4.40-5.90) L 10/08/17 05:25 Hgb 11.4 g/dL (12.0-18.0) L 10/08/17 05:25 Hct 34.2 % (35.0-51.0) L 10/08/17 05:25 MCV 89.3 fl (80.0-94.0) 10/08/17 05:25 MCH 29.7 pg (27.0-31.0) 10/08/17 05:25 MCHC 33.3 g/dL (33.0-37.0) 10/08/17 05:25 RDW 12.7 % (11.5-14.5) 10/08/17 05:25 Plt Count 269 K/uL (130-400) 10/08/17 05:25 MPV 9.5 fl (7.2-11.7) 10/08/17 05:25 Neut % (Auto) 71.6 % (50.0-75.0) 10/08/17 05:25 Lymph % (Auto) 17.6 % (20.0-40.0) L 10/08/17 05:25 [place] % (Auto) 8.5 % (0.0-10.0) 10/08/17 05:25 Eos % (Auto) 1.5 % (0.0-4.0) 10/08/17 05:25 Baso % (Auto) 0.8 % (0.0-2.0) 10/08/17 05:25 Neut # (Auto) 6.9 K/uL (1.8-7.0) 10/08/17 05:25 Lymph # (Auto) 1.7 K/uL (1.0-4.3) 10/08/17 05:25 [place] # (Auto) 0.8 K/uL (0.0-0.8) 10/08/17 05:25 Eos # (Auto) 0.1 K/uL (0.0-0.7) 10/08/17 05:25 Baso # (Auto) 0.1 K/uL (0.0-0.2) 10/08/17 05:25 Neutrophils % (Manual) 85 % (42-75) H 10/07/17 14:16 Lymphocytes % (Manual) 9 % (20-50) L 10/07/17 14:16 Monocytes % (Manual) 6 % (0-10) 10/07/17 14:16 Platelet Estimate Normal (NORMAL) 10/07/17 14:16 RBC Morphology Normal (NORMAL) 10/07/17 14:16 PT 11.8 Seconds (9.8-13.1) 10/07/17 14:16 INR 1.1 (0.9-1.2) 10/07/17 14:16 APTT 39.3 Seconds (25.6-37.1) H 10/07/17 14:16 Sodium 142 mmol/l (132-148) 10/08/17 05:25 Potassium 3.8 MMOL/L (3.6-5.0) 10/08/17 05:25 Chloride 105 mmol/L (98-107) 10/08/17 05:25 Carbon Dioxide 29 mmol/L (22-30) 10/08/17 05:25 Anion Gap 12 (10-20) 10/08/17 05:25 BUN 11 mg/dl (9-20) 10/08/17 05:25 Creatinine 0.7 mg/dl (0.8-1.5) L 10/08/17 05:25 Est GFR ( Amer) > 60 10/08/17 05:25 Est GFR (Non-Af Amer) > 60 10/08/17 05:25 Random Glucose 93 mg/dL (75-110) 10/08/17 05:25 Calcium 8.4 mg/dL (8.4-10.2) 10/08/17 05:25 Total Bilirubin 0.8 mg/dl (0.2-1.3) 10/08/17 05:25 AST 16 U/L (17-59) L D 10/08/17 05:25 ALT 28 U/L (21-72) 10/08/17 05:25 Alkaline Phosphatase 69 U/L (38-126) 10/08/17 05:25 Total Protein 5.5 G/DL (6.3-8.2) L 10/08/17 05:25 Albumin 2.7 g/dL (3.5-5.0) L D 10/08/17 05:25 Globulin 2.9 gm/dL (2.2-3.9) 10/08/17 05:25 Albumin/Globulin Ratio 0.9 (1.0-2.1) L 10/08/17 05:25 - Hospital Course Hospital Course: 42 yo M w PMHx of SBO (last episode 01/2017) and related abdominal surgeries ( 2012 & 2013) was admitted for multiple episodes of vomiting. CT A/P showed Dilated small bowel w associated "whirl sign," the findings are highly suspicious for closed loop obstruction. Distal small bowel, colon are unremarkable. Pt was first held NPO for bowel rest and eventually had diet advanced. Pt had 4 normal BMs within last 18 hours. To be discharged home. Discharge Exam - Additional Findings Additional findings: - Constitutional Appears: Well, Non-toxic, No Acute Distress - Eye Exam Eye Exam: EOMI, Normal appearance - ENT Exam ENT Exam: Mucous Membranes Moist - Neck Exam Neck Exam: Full ROM - Respiratory Exam Respiratory Exam: Clear to Ausculation Bilateral, NORMAL BREATHING PATTERN. absent: Wheezes - Cardiovascular Exam Cardiovascular Exam: REGULAR RHYTHM, +S1, +S2 - GI/Abdominal Exam GI & Abdominal Exam: Soft, Normal Bowel Sounds. absent: Distended, Guarding, Tenderness, Rebound - Extremities Exam Extremities Exam: absent: Calf Tenderness - Neurological Exam Neurological Exam: Alert, Awake, CN II-XII Intact, Oriented x3 - Psychiatric Exam Psychiatric exam: Normal Affect, Normal Mood Discharge Plan - Follow Up Plan Condition: GOOD Disposition: HOME/ ROUTINE Instructions: Bowel Obstruction (DC) Additional Instructions: follow up with your primary MD 7-10 days Referrals: [facility] [place] [Outside] Maged Albert MD [Staff Provider] - <Walter Fernandeza - Last Filed: 10/10/17 08:34> Provider - Provider Date of Admission: 10/07/17 18:36 Attending physician: Alyssa East MD Primary care physician: ATTESTATION ATTENDING NOTE PATIENT SEEN AND EXAMINED. TOLERATED PO FLUIDS FOR 24 HOURS. REPORTS HE FEELS WELL AND IS READY TO GO HOME. CASE DISCUSSED WITH RESIDENT. AGREE WITH FINDINGS AND PLAN. Hospital Course - Lab Results Lab Results: Most Recent Lab Values WBC 9.7 K/uL (4.8-10.8) 10/08/17 05:25 RBC 3.82 Mil/uL (4.40-5.90) L 10/08/17 05:25 Hgb 11.4 g/dL (12.0-18.0) L 10/08/17 05:25 Hct 34.2 % (35.0-51.0) L 10/08/17 05:25 MCV 89.3 fl (80.0-94.0) 10/08/17 05:25 MCH 29.7 pg (27.0-31.0) 10/08/17 05:25 MCHC 33.3 g/dL (33.0-37.0) 10/08/17 05:25 RDW 12.7 % (11.5-14.5) 10/08/17 05:25 Plt Count 269 K/uL (130-400) 10/08/17 05:25 MPV 9.5 fl (7.2-11.7) 10/08/17 05:25 Neut % (Auto) 71.6 % (50.0-75.0) 10/08/17 05:25 Lymph % (Auto) 17.6 % (20.0-40.0) L 10/08/17 05:25 [place] % (Auto) 8.5 % (0.0-10.0) 10/08/17 05:25 Eos % (Auto) 1.5 % (0.0-4.0) 10/08/17 05:25 Baso % (Auto) 0.8 % (0.0-2.0) 10/08/17 05:25 Neut # (Auto) 6.9 K/uL (1.8-7.0) 10/08/17 05:25 Lymph # (Auto) 1.7 K/uL (1.0-4.3) 10/08/17 05:25 [place] # (Auto) 0.8 K/uL (0.0-0.8) 10/08/17 05:25 Eos # (Auto) 0.1 K/uL (0.0-0.7) 10/08/17 05:25 Baso # (Auto) 0.1 K/uL (0.0-0.2) 10/08/17 05:25 Neutrophils % (Manual) 85 % (42-75) H 10/07/17 14:16 Lymphocytes % (Manual) 9 % (20-50) L 10/07/17 14:16 Monocytes % (Manual) 6 % (0-10) 10/07/17 14:16 Platelet Estimate Normal (NORMAL) 10/07/17 14:16 RBC Morphology Normal (NORMAL) 10/07/17 14:16 PT 11.8 Seconds (9.8-13.1) 10/07/17 14:16 INR 1.1 (0.9-1.2) 10/07/17 14:16 APTT 39.3 Seconds (25.6-37.1) H 10/07/17 14:16 Sodium 142 mmol/l (132-148) 10/08/17 05:25 Potassium 3.8 MMOL/L (3.6-5.0) 10/08/17 05:25 Chloride 105 mmol/L (98-107) 10/08/17 05:25 Carbon Dioxide 29 mmol/L (22-30) 10/08/17 05:25 Anion Gap 12 (10-20) 10/08/17 05:25 BUN 11 mg/dl (9-20) 10/08/17 05:25 Creatinine 0.7 mg/dl (0.8-1.5) L 10/08/17 05:25 Est GFR ( Amer) > 60 10/08/17 05:25 Est GFR (Non-Af Amer) > 60 10/08/17 05:25 Random Glucose 93 mg/dL (75-110) 10/08/17 05:25 Calcium 8.4 mg/dL (8.4-10.2) 10/08/17 05:25 Total Bilirubin 0.8 mg/dl (0.2-1.3) 10/08/17 05:25 AST 16 U/L (17-59) L D 10/08/17 05:25 ALT 28 U/L (21-72) 10/08/17 05:25 Alkaline Phosphatase 69 U/L (38-126) 10/08/17 05:25 Total Protein 5.5 G/DL (6.3-8.2) L 10/08/17 05:25 Albumin 2.7 g/dL (3.5-5.0) L D 10/08/17 05:25 Globulin 2.9 gm/dL (2.2-3.9) 10/08/17 05:25 Albumin/Globulin Ratio 0.9 (1.0-2.1) L 10/08/17 05:25
[2017-10-09] MEDS ORDERED: Pantoprazole 40 mg EC Tab PO ONE (20:05)
== END 2017-10-09 13:20 | disposition home or self-care (01) | DRG 181 ==
LOC: H.ER 12:26 → H.ERHOLD 18:36 → H.MEDSURG1 21:58
PROVIDERS: ADMIT Family Medicine Geriatric Medicine; ATTEND Family Medicine Geriatric Medicine
PROC: 3E0234Z Introduction of Serum, Toxoid and Vaccine into Muscle, Percutaneous Approach (ICD-10-PCS; principal; 2017-10-08)
DX: K56.609 Unspecified intestinal obstruction, unspecified as to partial versus complete obstruction (principal); Z23 Encounter for immunization

== ENCOUNTER 2018-03-03 11:14 | Observation (INO) | payer OTHER, SELFPAY ==
[2018-03-03 11:15] VITALS: BMI 23.6
[2018-03-03] MEDS ORDERED: Sodium Chloride 0.9% 1,000 ML IV STA (12:08)
--- NOTE | 2018-03-03 12:15 | ED PDOC ---
HPI: Abdomen Time Seen by Provider: 03/03/18 11:46 Chief Complaint (Nursing): Abdominal Pain Chief Complaint (Provider): Abdominal pain History Per: Patient History/Exam Limitations: no limitations Onset/Duration Of Symptoms: Days (1) Additional Complaint(s): Pt states he drank coffee this morning then started having abdominal pain and back pain. Denies fever, nausea, vomiting, constipation, diarrhea. Last BM this AM, normal. 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 Past Medical History Reviewed: Nursing Documentation, Vital Signs Vital Signs: Last Vital Signs Temp 98.1 F 03/04/18 08:33 Pulse 76 03/04/18 08:33 Resp 20 03/04/18 08:33 BP 105/63 03/04/18 08:33 Pulse Ox 97 03/04/18 08:33 - Medical History PMH: Obstructive Bowel - Family History Family History: States: Unknown Family Hx - Living Arrangements Living Arrangements: With Family - Social History Current smoker - smoking cessation education provided: No Alcohol: None - Immunization History Hx Tetanus Toxoid Vaccination: No Hx Influenza Vaccination: No Hx Pneumococcal Vaccination: No - Home Medications Home Medications: Ambulatory Orders Medication Instructions Recorded Cholecalciferol [Vitamin D 1000 IU] 1 tab PO DAILY 03/03/18 Multivitamin/Iron/Folic Acid 1 tab PO DAILY 03/03/18 [Centrum Complete Multivit Tab] - Allergies Allergies/Adverse Reactions: Allergies Allergy/AdvReac Type Severity Reaction Status Date / Time No Known Allergies Allergy Verified 03/03/18 11:21 Review of Systems Constitutional: Negative for: Fever, Chills Cardiovascular: Negative for: Chest Pain, Palpitations Respiratory: Negative for: Cough, Shortness of Breath Gastrointestinal: Positive for: Abdominal Pain. Negative for: Nausea, Vomiting , Diarrhea, Hematemesis, Rectal Pain Genitourinary Male: Negative for: Dysuria, Hematuria Musculoskeletal: Positive for: Back Pain Skin: Negative for: Rash, Lesions Neurological: Negative for: Weakness, Numbness, Headache Physical Exam - Reviewed Nursing Documentation Reviewed: Yes Vital Signs Reviewed: Yes - Physical Exam Appears: Positive for: Well, No Acute Distress Skin: Positive for: Normal Color, Warm, Dry Eye Exam: Positive for: Normal appearance, EOMI, PERRL Cardiovascular/Chest: Positive for: Regular Rate, Rhythm Respiratory: Positive for: Normal Breath Sounds. Negative for: Rales, Rhonchi, Wheezing Gastrointestinal/Abdominal: Positive for: Bowel Sounds, Soft, Tenderness (LUQ). Negative for: Distended, Guarding, Rebound Back: Positive for: Normal Inspection. Negative for: L CVA Tenderness, R CVA Tenderness Extremity: Positive for: Normal ROM Neurologic/Psych: Positive for: Alert, Oriented - Laboratory Results Result Diagrams: 03/04/18 06:00 03/04/18 06:00 - ECG O2 Sat by Pulse Oximetry: 98 Medical Decision Making Medical Decision Makin yo male with abdominal pain. - labs - EKG - CT abd/pelvis - Morphine - IVF Accession No. : [id number] Patient Name / ID : DRU CEBALLOS / [id number] Exam Date : 03/03/2018 15:17:17 ( Approved ) Study Comment : Sex / Age : M / 42Y Creator : John Agustin MD Dictator : John Agustin MD Fire Lieutenant : Product Safety Administrator : John Agustin MD Approver2 : Report Date : 03/03/2018 15:58:41 My Comment : This report is currently processing and HAS NOT BEEN OFFICIALLY SIGNED BY THE PHYSICIAN - ESTIMATED TIME OF APPROVAL IS 03/03/2018 16:04. PROCEDURE: CT Abdomen and Pelvis with contrast HISTORY: Abdominal pain, history of small-bowel obstruction COMPARISON: 10/07/2017 CT abdomen and pelvis. TECHNIQUE: Contrast dose: 95 cc Omnipaque 300 Radiation dose: Total exam DLP = 355.07 mGy-cm. This CT exam was performed using one or more of the following dose reduction techniques: Automated exposure control, adjustment of the mA and/or kV according to patient size, and/or use of iterative reconstruction technique. FINDINGS: LOWER THORAX: Unremarkable. LIVER: Hepatic steatosis. No focal masses. No intrahepatic bile duct dilatation or perihepatic ascites. GALLBLADDER AND BILE DUCTS: Unremarkable. PANCREAS: Unremarkable. No gross lesion or ductal dilatation. SPLEEN: Unremarkable. ADRENALS: Unremarkable. No mass. KIDNEYS AND URETERS: Unremarkable. No hydronephrosis. No solid mass. VASCULATURE: Unremarkable. No aortic aneurysm. BOWEL: Small-bowel obstruction likely closed loop given the overall appearance in the presence of "whirl" sign . The degree of distention is worse than that seen previously. Stable postoperative changes left upper quadrant related to gastric surgery. APPENDIX: Normal appendix. PERITONEUM: Pelvic ascites identified the fluid volume is larger than that seen previously. LYMPH NODES: Unremarkable. No enlarged lymph nodes. BLADDER: Unremarkable. REPRODUCTIVE: Unremarkable. BONES: No acute fracture. OTHER FINDINGS: None. IMPRESSION: Small bowel obstruction. The overall appearance and secondary signs suggest closed loop obstruction. Free fluid in the pelvis increased volume compared to the prior study. No free air. Additional benign and/or incidental findings described above. 16:00 Case discussed with advanced manufacturing vice president. Disposition - Clinical Impression Clinical Impression: SBO (small bowel obstruction) - Patient ED Disposition Is Patient to be Admitted: Yes - Disposition Disposition Time: 16:02 Condition: STABLE - Pt Status Changed To: Hospital Disposition Of: Inpatient - Admit Certification Admit to Inpatient:: After my assessment, the patient will require hospitalization for at least two midnights. This is because of the severity of symptoms shown, intensity of services needed, and/or the medical risk in this patient being treated as an outpatient. - POA Present On Arrival: None
[2018-03-03 12:46] LABS: BASO # 0.1 K/uL (0.0-0.2); BASO % 0.5 % (0.0-2.0); EOS # 0.1 K/uL (0.0-0.7); EOS % 0.4 % (0.0-4.0); HEMOGLOBIN 12.5 g/dL (12.0-18.0); LYMPH # 1.1 K/uL (1.0-4.3); LYMPH % 7.5 % (20.0-40.0); MEAN CELL VOLUME 90.4 fl (80.0-94.0); MEAN CORPUSCULAR HEMOGLOBIN 29.5 pg (27.0-31.0); MEAN CORPUSCULAR HGB CONC 32.6 g/dL (33.0-37.0); MEAN PLATELET VOLUME 8.8 fl (7.2-11.7); MONO # 0.9 K/uL (0.0-0.8); MONO % 6.5 % (0.0-10.0); NEUT # 12.2 K/uL (1.8-7.0); NEUT % 85.1 % (50.0-75.0); PLATELET COUNT 335 K/uL (130-400); RBC 4.26 Mil/uL (4.40-5.90); RED CELL DISTRIBUTION WIDTH 13.3 % (11.5-14.5); WHITE BLOOD COUNT 14.3 K/uL (4.8-10.8)
[2018-03-03 12:51] LABS: SQUAMOUS EPITHIAL < 1 /hpf (0-5); URINE BILIRUBIN NEGATIVE (NEGATIVE); URINE BLOOD NEGATIVE (NEGATIVE); URINE CLARITY CLEAR (Clear); URINE COLOR YELLOW (YELLOW); URINE GLUCOSE (UA) NEG (Normal); URINE LEUKOCYTE ESTERASE NEG Leu/uL (Negative); URINE PROTEIN NEGATIVE (NEGATIVE)
[2018-03-03 12:58] LABS: INR 1.1 (0.9-1.2)
[2018-03-03 12:59] LABS: PARTIAL THROMBOPLASTIN TIME 35.6 Seconds (25.6-37.1)
[2018-03-03 13:00] LABS: ALBUMIN 3.2 g/dL (3.5-5.0); ALT/SGPT 26 U/L (21-72); AST/SGOT 22 U/L (17-59); BLOOD UREA NITROGEN 14 mg/dl (9-20); CALCIUM 8.6 mg/dL (8.4-10.2); GFR AFRICAN-AMERICAN > 60; GFR NON-AFRICAN AMERICAN > 60; LIPASE 28 U/L (23-300)
--- NOTE | 2018-03-03 13:41 | CARD ---
APPROVED REPORT EKG Measurement Heart [id number] <Conclusion> Normal sinus rhythm Normal ECG
[2018-03-03 14:07] LABS: BANDS 3 % (0-2); BASOPHIL 1 % (0-2); EOSINOPHIL 1 % (0-7); LYMPHOCYTE 7 % (20-50); MONOCYTE 4 % (0-10); NEUTROPHIL 84 % (42-75); PLATELET ESTIMATE NORMAL (NORMAL); TOTAL CELLS COUNTED 100
[2018-03-03] MEDS ORDERED: Sodium Chloride 0.9% 100 ML ONE (14:08)
[2018-03-03] MEDS ORDERED: Iohexol 300 100 ML IJ ONE (14:08)
--- NOTE | 2018-03-03 16:00 | CT ---
PROCEDURE: CT Abdomen and Pelvis with contrast HISTORY: Abdominal pain, history of small-bowel obstruction COMPARISON: 10/07/2017 CT abdomen and pelvis. TECHNIQUE: Contrast dose: 95 cc Omnipaque 300 Radiation dose: Total exam DLP = 355.07 mGy-cm. This CT exam was performed using one or more of the following dose reduction techniques: Automated exposure control, adjustment of the mA and/or kV according to patient size, and/or use of iterative reconstruction technique. FINDINGS: LOWER THORAX: Unremarkable. LIVER: Hepatic steatosis. No focal masses. No intrahepatic bile duct dilatation or perihepatic ascites. GALLBLADDER AND BILE DUCTS: Unremarkable. PANCREAS: Unremarkable. No gross lesion or ductal dilatation. SPLEEN: Unremarkable. ADRENALS: Unremarkable. No mass. KIDNEYS AND URETERS: Unremarkable. No hydronephrosis. No solid mass. VASCULATURE: Unremarkable. No aortic aneurysm. BOWEL: Small-bowel obstruction likely closed loop given the overall appearance in the presence of "whirl" sign . The degree of distention is worse than that seen previously. Stable postoperative changes left upper quadrant related to gastric surgery. APPENDIX: Normal appendix. PERITONEUM: Pelvic ascites identified the fluid volume is larger than that seen previously. LYMPH NODES: Unremarkable. No enlarged lymph nodes. BLADDER: Unremarkable. REPRODUCTIVE: Unremarkable. BONES: No acute fracture. OTHER FINDINGS: None. IMPRESSION: Small bowel obstruction. The overall appearance and secondary signs suggest closed loop obstruction. Free fluid in the pelvis increased volume compared to the prior study. No free air. Additional benign and/or incidental findings described above. COMMUNICATION OF RESULTS Findings discussed with the attending physician in the emergency department Dr. Kirsty Alexander at the time of this interpretation. Study completed 15:21. Verbal results provided 15:56. Results available in the electronic medical record 15:58.
--- NOTE | 2018-03-03 16:36 | CP.PCM.CON ---
History of Present Illness - History of Present Illness History of Present Illness: General Surgery Dr. Peterson 42 y/o M w/ PMHx of recurrent SBO s/p SBR x2 presents to the ED c/o abd pain. Pt reports pain started this AM ~9am. Pain similar to episode in September, at which time pt was admitted for SBO, treated non-operatively. Pt currently reports complete resolution of pain. Pt admits to normal BM this AM. Pt denies F /C, N/V, D/C. Pt is hungry and requesting something to eat. PMHx: SBO Meds: reviewed in chart NKDA PSHx: small bowel surgery x2 (2012, 2013) SHx: denies tobacco, EtOH, drug use FHx: noncontributory Review of Systems - Review of Systems All systems: reviewed and no additional remarkable complaints except (see HPI) Past Patient History - Infectious Disease Hx of Infectious Diseases: None - Tetanus Immunizations Tetanus Immunization: Unknown - Past Medical History & Family History Past Medical History?: Yes - Past Social History Alcohol: None - CARDIAC Hx Cardiac Disorders: No - PULMONARY Hx Respiratory Disorders: No - NEUROLOGICAL Hx Neurological Disorder: No - HEENT Hx HEENT Problems: No - RENAL Hx Chronic Kidney Disease: No - ENDOCRINE/METABOLIC Hx Endocrine Disorders: No - HEMATOLOGICAL/ONCOLOGICAL Hx Human Immunodeficiency Virus (HIV): No - INTEGUMENTARY Hx Dermatological Problems: No - MUSCULOSKELETAL/RHEUMATOLOGICAL Hx Falls: No - GASTROINTESTINAL Hx Crohn's Disease: No - GENITOURINARY/GYNECOLOGICAL Hx Genitourinary Disorders: No - PSYCHIATRIC Hx Psychophysiologic Disorder: No Hx Substance Use: No - SURGICAL HISTORY Hx Surgeries: Yes Other/Comment: SB resection x 2 (2012 & 2013) - ANESTHESIA Hx Anesthesia: Yes Hx Anesthesia Reactions: No Hx Malignant Hyperthermia: No Meds Allergies/Adverse Reactions: Allergies Allergy/AdvReac Type Severity Reaction Status Date / Time No Known Allergies Allergy Verified 03/03/18 11:21 - Medications Medications: Current Medications Sodium Chloride (Sodium Chloride 0.9%) 1,000 mls @ 125 mls/hr IV .Q8H STA Stop: 03/03/18 20:07 Last Admin: 03/03/18 12:29 Dose: 125 mls/hr Physical Exam - Constitutional Appears: Non-toxic, No Acute Distress - Head Exam Head Exam: NORMAL INSPECTION - Eye Exam Eye Exam: Normal appearance - ENT Exam ENT Exam: Mucous Membranes Moist - Respiratory Exam Respiratory Exam: NORMAL BREATHING PATTERN. absent: Respiratory Distress - Cardiovascular Exam Cardiovascular Exam: REGULAR RHYTHM. absent: Bradycardia, Tachycardia - GI/Abdominal Exam GI & Abdominal Exam: Soft. absent: Distended, Firm, Guarding, Rebound, Tenderness Additional comments: midline scar present, well healed - Extremities Exam Extremities exam: Positive for: normal inspection, pedal pulses present. Negative for: pedal edema - Neurological Exam Neurological exam: Alert, Oriented x3 - Psychiatric Exam Psychiatric exam: Normal Affect, Normal Mood - Skin Skin Exam: Dry, Intact, Normal Color, Warm Results - Vital Signs Recent Vital Signs: Last Vital Signs Temp 98.4 F 03/03/18 15:48 Pulse 82 03/03/18 15:48 Resp 16 03/03/18 15:48 BP 116/50 L 03/03/18 15:48 Pulse Ox 98 03/03/18 16:02 - Labs Result Diagrams: 03/03/18 12:30 03/03/18 12:30 Labs: Laboratory Results - last 24 hr 03/03/18 03/03/18 03/03/18 12:30 12:30 12:30 WBC 14.3 H RBC 4.26 L Hgb 12.5 Hct 38.5 MCV 90.4 MCH 29.5 MCHC 32.6 L RDW 13.3 Plt Count 335 MPV 8.8 Neut % (Auto) 85.1 H Lymph % (Auto) 7.5 L Ellis % (Auto) 6.5 Eos % (Auto) 0.4 Baso % (Auto) 0.5 Neut # (Auto) 12.2 H Lymph # (Auto) 1.1 Ellis # (Auto) 0.9 H Eos # (Auto) 0.1 Baso # (Auto) 0.1 Neutrophils % (Manual) 84 H Band Neutrophils % 3 H Lymphocytes % (Manual) 7 L Monocytes % (Manual) 4 Eosinophils % (Manual) 1 Basophils % (Manual) 1 Platelet Estimate Normal RBC Morphology Normal PT INR APTT Sodium 141 Potassium 4.2 Chloride 103 Carbon Dioxide 30 Anion Gap 12 BUN 14 Creatinine 0.6 L Est GFR ( Amer) > 60 Est GFR (Non-Af Amer) > 60 Random Glucose 107 Calcium 8.6 Total Bilirubin 0.5 AST 22 ALT 26 Alkaline Phosphatase 82 Total Protein 6.4 Albumin 3.2 L Globulin 3.1 Albumin/Globulin Ratio 1.0 Lipase 28 Urine Color Yellow Urine Clarity Clear Urine pH 6.0 Ur Specific [place] 1.018 Urine Protein Negative Urine Glucose (UA) Neg Urine Ketones Negative Urine Blood Negative Urine Nitrate Negative Urine Bilirubin Negative Urine Urobilinogen 2.0 Ur Leukocyte Esterase Neg Urine RBC (Auto) 4 H Urine Microscopic WBC < 1 Ur Squamous Epith Cells < 1 03/03/18 12:30 WBC RBC Hgb Hct MCV MCH MCHC RDW Plt Count MPV Neut % (Auto) Lymph % (Auto) Ellis % (Auto) Eos % (Auto) Baso % (Auto) Neut # (Auto) Lymph # (Auto) Ellis # (Auto) Eos # (Auto) Baso # (Auto) Neutrophils % (Manual) Band Neutrophils % Lymphocytes % (Manual) Monocytes % (Manual) Eosinophils % (Manual) Basophils % (Manual) Platelet Estimate RBC Morphology PT 12.0 INR 1.1 APTT 35.6 Sodium Potassium Chloride Carbon Dioxide Anion Gap BUN Creatinine Est GFR ( Amer) Est GFR (Non-Af Amer) Random Glucose Calcium Total Bilirubin AST ALT Alkaline Phosphatase Total Protein Albumin Globulin Albumin/Globulin Ratio Lipase Urine Color Urine Clarity Urine pH Ur Specific [place] Urine Protein Urine Glucose (UA) Urine Ketones Urine Blood Urine Nitrate Urine Bilirubin Urine Urobilinogen Ur Leukocyte Esterase Urine RBC (Auto) Urine Microscopic WBC Ur Squamous Epith Cells - Imaging and Cardiology CT scan - abdomen Status: Image reviewed by me, Report reviewed by me Additional comment: similar to imaging on last admission 09/2017 Assessment & Plan - Assessment and Plan (Free Text) Assessment: 42 y/o M w/ abd pain, resolved, 2/2 recurrent, self-resolving SBO Plan: - PO challenge - IVF - NGT if vomiting develops - Monitor vitals - serial abd exams - pain management - anti-emetic - conservative management - may need surgery if pt decompensates Pt discussed w/ Dr. Nicholas Rodas DO PGY3
--- NOTE | 2018-03-03 17:16 | CP.PCM.HP ---
History of Present Illness - History of Present Illness History of Present Illness: 42 yo male with history of recurrent SBO with bowel resection in 2013 and lysis of adhesion in 2014 came in complaining of upper abdominal pain around 9am accompanied with bouts of vomiting. Took 4 tabs of Aleve and had some relief by the time he arrived in the ER. Pain was almost gone by the time he was seen. Denied fever or chills. Also denied diarrhea, chest pain or SOB Present on Admission - Present on Admission Any Indicators Present on Admission: No History of DVT/PE: No History of Uncontrolled Diabetes: No Urinary Catheter: No Decubitus Ulcer Present: No Review of Systems - Review of Systems All systems: reviewed and no additional remarkable complaints except (aside from those mentioned above, 12 point system review were negative by me) Past Patient History - Infectious Disease Hx of Infectious Diseases: None - Tetanus Immunizations Tetanus Immunization: Unknown - Past Medical History & Family History Past Medical History?: Yes - Past Social History Smoking Status: Never Smoked Chewing Tobacco Use: No Cigar Use: No Alcohol: None Drugs: Denies Home Situation {Lives}: With Family - CARDIAC Hx Cardiac Disorders: No - PULMONARY Hx Respiratory Disorders: No - NEUROLOGICAL Hx Neurological Disorder: No - HEENT Hx HEENT Problems: No - RENAL Hx Chronic Kidney Disease: No - ENDOCRINE/METABOLIC Hx Endocrine Disorders: No - HEMATOLOGICAL/ONCOLOGICAL Hx Human Immunodeficiency Virus (HIV): No - INTEGUMENTARY Hx Dermatological Problems: No - MUSCULOSKELETAL/RHEUMATOLOGICAL Hx Falls: No - GASTROINTESTINAL Hx Crohn's Disease: No - GENITOURINARY/GYNECOLOGICAL Hx Genitourinary Disorders: No - PSYCHIATRIC Hx Psychophysiologic Disorder: No Hx Substance Use: No - SURGICAL HISTORY Hx Surgeries: Yes Other/Comment: bowel resection in 2013. lysis of adhesion in 2014 - ANESTHESIA Hx Anesthesia: Yes Hx Anesthesia Reactions: No Hx Malignant Hyperthermia: No Meds Allergies/Adverse Reactions: Allergies Allergy/AdvReac Type Severity Reaction Status Date / Time No Known Allergies Allergy Verified 03/03/18 11:21 Physical Exam - Constitutional Appears: No Acute Distress - Head Exam Head Exam: ATRAUMATIC - Eye Exam Eye Exam: absent: Scleral icterus - ENT Exam ENT Exam: Mucous Membranes Moist - Neck Exam Neck exam: Negative for: Meningismus - Respiratory Exam Respiratory Exam: absent: Rales, Rhonchi, Wheezes, Respiratory Distress - Cardiovascular Exam Cardiovascular Exam: REGULAR RHYTHM, +S1, +S2 - GI/Abdominal Exam GI & Abdominal Exam: Soft. absent: Guarding, Rebound, Tenderness - Rectal Exam Rectal Exam: Deferred - Extremities Exam Extremities exam: Negative for: calf tenderness, pedal edema - Back Exam Back exam: NORMAL INSPECTION - Neurological Exam Neurological exam: Alert, Oriented x3 - Psychiatric Exam Psychiatric exam: Normal Affect - Skin Skin Exam: Dry, Intact Results - Vital Signs Recent Vital Signs: Last Vital Signs Temp 98.4 F 03/03/18 15:48 Pulse 82 03/03/18 15:48 Resp 16 03/03/18 15:48 BP 116/50 L 03/03/18 15:48 Pulse Ox 98 03/03/18 16:02 - Labs Result Diagrams: 03/03/18 12:30 03/03/18 12:30 Labs: Laboratory Results - last 24 hr 03/03/18 03/03/18 03/03/18 12:30 12:30 12:30 WBC 14.3 H RBC 4.26 L Hgb 12.5 Hct 38.5 MCV 90.4 MCH 29.5 MCHC 32.6 L RDW 13.3 Plt Count 335 MPV 8.8 Neut % (Auto) 85.1 H Lymph % (Auto) 7.5 L [place] % (Auto) 6.5 Eos % (Auto) 0.4 Baso % (Auto) 0.5 Neut # (Auto) 12.2 H Lymph # (Auto) 1.1 [place] # (Auto) 0.9 H Eos # (Auto) 0.1 Baso # (Auto) 0.1 Neutrophils % (Manual) 84 H Band Neutrophils % 3 H Lymphocytes % (Manual) 7 L Monocytes % (Manual) 4 Eosinophils % (Manual) 1 Basophils % (Manual) 1 Platelet Estimate Normal RBC Morphology Normal PT INR APTT Sodium 141 Potassium 4.2 Chloride 103 Carbon Dioxide 30 Anion Gap 12 BUN 14 Creatinine 0.6 L Est GFR ( Amer) > 60 Est GFR (Non-Af Amer) > 60 Random Glucose 107 Calcium 8.6 Total Bilirubin 0.5 AST 22 ALT 26 Alkaline Phosphatase 82 Total Protein 6.4 Albumin 3.2 L Globulin 3.1 Albumin/Globulin Ratio 1.0 Lipase 28 Urine Color Yellow Urine Clarity Clear Urine pH 6.0 Ur Specific [place] 1.018 Urine Protein Negative Urine Glucose (UA) Neg Urine Ketones Negative Urine Blood Negative Urine Nitrate Negative Urine Bilirubin Negative Urine Urobilinogen 2.0 Ur Leukocyte Esterase Neg Urine RBC (Auto) 4 H Urine Microscopic WBC < 1 Ur Squamous Epith Cells < 1 03/03/18 12:30 WBC RBC Hgb Hct MCV MCH MCHC RDW Plt Count MPV Neut % (Auto) Lymph % (Auto) [place] % (Auto) Eos % (Auto) Baso % (Auto) Neut # (Auto) Lymph # (Auto) [place] # (Auto) Eos # (Auto) Baso # (Auto) Neutrophils % (Manual) Band Neutrophils % Lymphocytes % (Manual) Monocytes % (Manual) Eosinophils % (Manual) Basophils % (Manual) Platelet Estimate RBC Morphology PT 12.0 INR 1.1 APTT 35.6 Sodium Potassium Chloride Carbon Dioxide Anion Gap BUN Creatinine Est GFR ( Amer) Est GFR (Non-Af Amer) Random Glucose Calcium Total Bilirubin AST ALT Alkaline Phosphatase Total Protein Albumin Globulin Albumin/Globulin Ratio Lipase Urine Color Urine Clarity Urine pH Ur Specific [place] Urine Protein Urine Glucose (UA) Urine Ketones Urine Blood Urine Nitrate Urine Bilirubin Urine Urobilinogen Ur Leukocyte Esterase Urine RBC (Auto) Urine Microscopic WBC Ur Squamous Epith Cells Assessment & Plan - Assessment and Plan (Free Text) Assessment: 42 yo male with history of recurrent SBO with bowel resection in 2013 and lysis of adhesion in 2013 came in complaining of upper abdominal pain around 9am accompanied with bouts of vomiting. Took 4 tabs of Aleve and had some relief by the time he arrived in the ER. Pain was almost gone by the time he was seen. 1. SBO keep NPO IV hydration with NSS 120cc/hr Morphine 2mg IV q 4hrs prn for pain surgical consult with Dr Peterson (called by ER)
[2018-03-03] MEDS: Sodium Chloride 0.9% 1,000 ML IV SCH (22:47)
[2018-03-04] MEDS: Sodium Chloride 0.9% 1,000 ML IV SCH (05:56)
[2018-03-04 06:21] LABS: BASO # 0.1 K/uL (0.0-0.2); BASO % 0.9 % (0.0-2.0); EOS # 0.1 K/uL (0.0-0.7); EOS % 1.3 % (0.0-4.0); LYMPH # 1.2 K/uL (1.0-4.3); LYMPH % 12.2 % (20.0-40.0); MEAN CELL VOLUME 90.3 fl (80.0-94.0); MEAN CORPUSCULAR HEMOGLOBIN 30.1 pg (27.0-31.0); MEAN CORPUSCULAR HGB CONC 33.3 g/dL (33.0-37.0); MEAN PLATELET VOLUME 8.9 fl (7.2-11.7); MONO # 0.9 K/uL (0.0-0.8); MONO % 9.3 % (0.0-10.0); NEUT # 7.5 K/uL (1.8-7.0); NEUT % 76.3 % (50.0-75.0); RBC 3.67 Mil/uL (4.40-5.90); RED CELL DISTRIBUTION WIDTH 13.4 % (11.5-14.5); WHITE BLOOD COUNT 9.9 K/uL (4.8-10.8)
[2018-03-04 06:41] LABS: BLOOD UREA NITROGEN 13 mg/dl (9-20); CALCIUM 8.1 mg/dL (8.4-10.2); GFR AFRICAN-AMERICAN > 60; GFR NON-AFRICAN AMERICAN > 60
--- NOTE | 2018-03-04 07:15 | CP.PCM.PN ---
Subjective - Date & Time of Evaluation Date of Evaluation: 03/04/18 Time of Evaluation: 07:12 - Subjective Subjective: Surgery PT seen and examined. No acute events. Denies fever, nausea. Pain controlled. Had BM yesterday. Passing flatus. Objective - Vital Signs/Intake and Output Vital Signs (last 24 hours): Temp Pulse Resp BP Pulse Ox 98.4 F 70 19 114/73 98 03/03/18 15:48 03/03/18 19:50 03/03/18 19:50 03/03/18 18:15 03/03/18 19:50 - Medications Medications: Current Medications Enoxaparin Sodium (Lovenox) 40 mg SC DAILY GEENA PRN Reason: Protocol Sodium Chloride (Sodium Chloride 0.9%) 1,000 mls @ 125 mls/hr IV .Q8H GEENA Stop: 03/04/18 21:57 Last Admin: 03/04/18 05:56 Dose: 125 mls/hr Morphine Sulfate (Morphine) 2 mg IVP Q4 PRN PRN Reason: Pain, moderate (4-7) - Labs Labs: 03/03/18 12:30 03/04/18 06:00 PT 12.0 Seconds (9.8-13.1) 03/03/18 12:30 INR 1.1 (0.9-1.2) 03/03/18 12:30 APTT 35.6 Seconds (25.6-37.1) 03/03/18 12:30 - Constitutional Appears: Well, No Acute Distress - Head Exam Head Exam: ATRAUMATIC, NORMAL INSPECTION, NORMOCEPHALIC - Eye Exam Eye Exam: EOMI, Normal appearance, PERRL Pupil Exam: NORMAL ACCOMODATION, PERRL - ENT Exam ENT Exam: Mucous Membranes Moist, Normal Exam - Neck Exam Neck Exam: Full ROM, Normal Inspection. absent: Lymphadenopathy - Respiratory Exam Respiratory Exam: Clear to Ausculation Bilateral, NORMAL BREATHING PATTERN - Cardiovascular Exam Cardiovascular Exam: REGULAR RHYTHM, +S1, +S2. absent: Murmur - GI/Abdominal Exam GI & Abdominal Exam: Soft, Normal Bowel Sounds. absent: Distended, Firm, Guarding, Rigid, Tenderness, Hernia, Mass, Organomegaly, Rebound Additional comments: Old well healed scars - Exam Exam: NORMAL INSPECTION - Extremities Exam Extremities Exam: Full ROM, Normal Capillary Refill, Normal Inspection. absent : Joint Swelling, Pedal Edema - Back Exam Back Exam: NORMAL INSPECTION - Neurological Exam Neurological Exam: Alert, Awake, CN II-XII Intact, Normal Gait, Oriented x3 - Psychiatric Exam Psychiatric exam: Normal Affect, Normal Mood - Skin Skin Exam: Dry, Intact, Normal Color, Warm Assessment and Plan - Assessment and Plan (Free Text) Assessment: 42 y/o M w/ abd pain, resolved, 2/2 recurrent,resolved SBO Plan: -Advance diet as tolerated. -Clear for DC for surgical standpoint -No emergent surgery at this time. John delaney/ Dr. Peterson
[2018-03-04 08:34] VITALS: BP 105/63; PULSE 76; RESP 20; TEMP 98.1
[2018-03-04] MEDS ORDERED: Enoxaparin 40 mg Syringe SC SCH (09:00)
--- NOTE | 2018-03-04 13:13 | CP.PCM.DIS ---
Provider - Provider Date of Admission: 03/04/18 11:00 Attending physician: Jimi Alfaro MD Consults: Surgery : Dr Peterson Time Spent in preparation of Discharge (in minutes): 25 Diagnosis - Discharge Diagnosis (1) Small bowel obstruction Status: Acute Hospital Course - Lab Results Lab Results: Most Recent Lab Values WBC 9.9 K/uL (4.8-10.8) 03/04/18 06:00 RBC 3.67 Mil/uL (4.40-5.90) L 03/04/18 06:00 Hgb 11.0 g/dL (12.0-18.0) L 03/04/18 06:00 Hct 33.2 % (35.0-51.0) L 03/04/18 06:00 MCV 90.3 fl (80.0-94.0) 03/04/18 06:00 MCH 30.1 pg (27.0-31.0) 03/04/18 06:00 MCHC 33.3 g/dL (33.0-37.0) 03/04/18 06:00 RDW 13.4 % (11.5-14.5) 03/04/18 06:00 Plt Count 287 K/uL (130-400) 03/04/18 06:00 MPV 8.9 fl (7.2-11.7) 03/04/18 06:00 Neut % (Auto) 76.3 % (50.0-75.0) H 03/04/18 06:00 Lymph % (Auto) 12.2 % (20.0-40.0) L 03/04/18 06:00 [place] % (Auto) 9.3 % (0.0-10.0) 03/04/18 06:00 Eos % (Auto) 1.3 % (0.0-4.0) 03/04/18 06:00 Baso % (Auto) 0.9 % (0.0-2.0) 03/04/18 06:00 Neut # (Auto) 7.5 K/uL (1.8-7.0) H 03/04/18 06:00 Lymph # (Auto) 1.2 K/uL (1.0-4.3) 03/04/18 06:00 [place] # (Auto) 0.9 K/uL (0.0-0.8) H 03/04/18 06:00 Eos # (Auto) 0.1 K/uL (0.0-0.7) 03/04/18 06:00 Baso # (Auto) 0.1 K/uL (0.0-0.2) 03/04/18 06:00 Neutrophils % (Manual) 84 % (42-75) H 03/03/18 12:30 Band Neutrophils % 3 % (0-2) H 03/03/18 12:30 Lymphocytes % (Manual) 7 % (20-50) L 03/03/18 12:30 Monocytes % (Manual) 4 % (0-10) 03/03/18 12:30 Eosinophils % (Manual) 1 % (0-7) 03/03/18 12:30 Basophils % (Manual) 1 % (0-2) 03/03/18 12:30 Platelet Estimate Normal (NORMAL) 03/03/18 12:30 RBC Morphology Normal (NORMAL) 03/03/18 12:30 PT 12.0 Seconds (9.8-13.1) 03/03/18 12:30 INR 1.1 (0.9-1.2) 03/03/18 12:30 APTT 35.6 Seconds (25.6-37.1) 03/03/18 12:30 Sodium 142 mmol/l (132-148) 03/04/18 06:00 Potassium 4.0 MMOL/L (3.6-5.0) 03/04/18 06:00 Chloride 107 mmol/L (98-107) 03/04/18 06:00 Carbon Dioxide 29 mmol/L (22-30) 03/04/18 06:00 Anion Gap 10 (10-20) 03/04/18 06:00 BUN 13 mg/dl (9-20) 03/04/18 06:00 Creatinine 0.7 mg/dl (0.8-1.5) L 03/04/18 06:00 Est GFR ( Amer) > 60 03/04/18 06:00 Est GFR (Non-Af Amer) > 60 03/04/18 06:00 Random Glucose 96 mg/dL (75-110) 03/04/18 06:00 Calcium 8.1 mg/dL (8.4-10.2) L 03/04/18 06:00 Total Bilirubin 0.5 mg/dl (0.2-1.3) 03/03/18 12:30 AST 22 U/L (17-59) 03/03/18 12:30 ALT 26 U/L (21-72) 03/03/18 12:30 Alkaline Phosphatase 82 U/L (38-126) 03/03/18 12:30 Total Protein 6.4 G/DL (6.3-8.2) 03/03/18 12:30 Albumin 3.2 g/dL (3.5-5.0) L 03/03/18 12:30 Globulin 3.1 gm/dL (2.2-3.9) 03/03/18 12:30 Albumin/Globulin Ratio 1.0 (1.0-2.1) 03/03/18 12:30 Lipase 28 U/L (23-300) 03/03/18 12:30 Procalcitonin < 0.05 NG/ML (0.19-0.49) L 03/04/18 07:03 Urine Color Yellow (YELLOW) 03/03/18 12:30 Urine Clarity Clear (Clear) 03/03/18 12:30 Urine pH 6.0 (5.0-8.0) 03/03/18 12:30 Ur Specific [place] 1.018 (1.003-1.030) 03/03/18 12:30 Urine Protein Negative mg/dL (NEGATIVE) 03/03/18 12:30 Urine Glucose (UA) Neg mg/dL (Normal) 03/03/18 12:30 Urine Ketones Negative mg/dL (NEGATIVE) 03/03/18 12:30 Urine Blood Negative (NEGATIVE) 03/03/18 12:30 Urine Nitrate Negative (NEGATIVE) 03/03/18 12:30 Urine Bilirubin Negative (NEGATIVE) 03/03/18 12:30 Urine Urobilinogen 2.0 mg/dL (0.2-1.0) 03/03/18 12:30 Ur Leukocyte Esterase Neg [place]/uL (Negative) 03/03/18 12:30 Urine RBC (Auto) 4 /hpf (0-3) H 03/03/18 12:30 Urine Microscopic WBC < 1 /hpf (0-5) 03/03/18 12:30 Ur Squamous Epith Cells < 1 /hpf (0-5) 03/03/18 12:30 - Hospital Course Hospital Course: 42 y/o male with hx of Recurrent SBO, hx of Bowel Resection x 2 came in because of abdominal pain. CT of the Abdomen: Small bowel obstruction. The overall appearance and secondary signs suggest closed loop obstruction. Free fluid in the pelvis increased volume compared to the prior study. No free air. Patient was admitted to [facility] Surg and kept NPO. IVF started. Surgery consulted - rec conservative mgt. Patient then started having flatus and BM. His abd pain resolved . Diet gradually introduced w/c patient tolerated. Discharge Exam - Head Exam Head Exam: ATRAUMATIC, NORMAL INSPECTION, NORMOCEPHALIC - Eye Exam Eye Exam: EOMI, Normal appearance, PERRL Pupil Exam: NORMAL ACCOMODATION - ENT Exam ENT Exam: Mucous Membranes Dry, Normal External Ear Exam - Neck Exam Neck exam: Full Rom - Respiratory Exam Respiratory Exam: NORMAL BREATHING PATTERN. absent: Respiratory Distress - Cardiovascular Exam Cardiovascular Exam: REGULAR RHYTHM, +S1, +S2 - GI/Abdominal Exam GI & Abdominal Exam: Normal Bowel Sounds, Soft. absent: Tenderness - Extremities Exam Extremities exam: full ROM, normal capillary refill, normal inspection, pedal pulses present - Back Exam Back exam: FULL ROM. absent: CVA tenderness (L), CVA tenderness (R) - Neurological Exam Neurological exam: Alert, CN II-XII Intact, Oriented x3, Reflexes Normal - Psychiatric Exam Psychiatric exam: Normal Affect, Normal Mood - Skin Skin Exam: Dry, Normal Color, Warm Discharge Plan - Follow Up Plan Condition: GOOD Disposition: HOME/ ROUTINE Instructions: Small Bowel Obstruction (DC) Additional Instructions: follow up with primary MD and dr peterson 1 week Referrals: [facility] [Outside] Nahomy Peterson MD [Staff Provider] -
[2018-03-04 18:16] VITALS: O2SAT 98
== END 2018-03-04 14:10 | disposition home or self-care (01) ==
LOC: H.ER 11:14 → H.MEDSURG1 16:02 → H.ERHOLD 16:02 → UNDOADMOB 16:02 → INTOOBSV 16:02 → H.ERHOLD 18:18 → H.MEDSURG1 18:18 → UNDOADMOB 03-04 11:00 → H.MEDSURG1 03-04 11:00
DX: K56.609 Unspecified intestinal obstruction, unspecified as to partial versus complete obstruction (principal); Z90.49 Acquired absence of other specified parts of digestive tract
CPT/HCPCS: 36415; 74177; 80048; 80053; 81003; 83690; 84145; 85025; 85610; 85730; 93005; 99285; G0378; J2270; J7030; Q9967

== ENCOUNTER 2018-09-17 19:40 | Emergency (ER) | payer OTHER ==
[2018-09-17 19:40] VITALS: BMI 23.6
[2018-09-17] MEDS ORDERED: Sodium Chloride 0.9% 1,000 ML IV STA (19:52)
[2018-09-17] MEDS ORDERED: Iohexol 240 (50 ml) PO ONE (19:52)
[2018-09-17 20:50] LABS: BASO # 0.1 K/uL (0.0-0.2); BASO % 0.9 % (0.0-2.0); EOS # 0.1 K/uL (0.0-0.7); EOS % 1.6 % (0.0-4.0); HEMOGLOBIN 12.1 g/dL (12.0-18.0); LYMPH # 1.1 K/uL (1.0-4.3); LYMPH % 13.5 % (20.0-40.0); MEAN CELL VOLUME 91.2 fl (80.0-94.0); MEAN CORPUSCULAR HEMOGLOBIN 29.4 pg (27.0-31.0); MEAN CORPUSCULAR HGB CONC 32.2 g/dL (33.0-37.0); MEAN PLATELET VOLUME 8.7 fl (7.2-11.7); MONO # 0.9 K/uL (0.0-0.8); MONO % 11.2 % (0.0-10.0); NEUT % 72.8 % (50.0-75.0); NRBC % 0.1 % (0.0-0.0); RBC 4.11 Mil/uL (4.40-5.90); WHITE BLOOD COUNT 8.2 K/uL (4.8-10.8)
--- NOTE | 2018-09-17 20:52 | ED PDOC ---
HPI: Abdomen Time Seen by Provider: 09/17/18 19:48 Chief Complaint (Nursing): Abdominal Pain Chief Complaint (Provider): abdominal pain History Per: Patient History/Exam Limitations: no limitations Onset/Duration Of Symptoms: Days (x2) Current Symptoms Are (Timing): Still Present Quality Of Discomfort: "Pain" Associated Symptoms: Back Pain. denies: Fever, Chills, Nausea, Vomiting, Diarrhea, Chest Pain, Urinary Symptoms Additional Complaint(s): Mauriico Navarro is a 42 year old male, with no significant past medical history, who presents to the emergency department complaining of a right sided abdominal pain that radiates to the back onset for x2 days. Patient reports taking Aleve this morning with no improvement. He denies any fever, chills, nausea, vomit, diarrhea, urinary symptoms, chest pain, shortness of breath, headache, dizziness, numbness or tingling, weakness, testicular pain or other medical complaints. PMD: Clinic Past Medical History Reviewed: Historical Data, Nursing Documentation, Vital Signs Vital Signs: Last Vital Signs Temp 98.3 F 09/17/18 19:41 Pulse 94 H 09/17/18 19:41 Resp 18 09/17/18 19:41 BP 135/81 09/17/18 19:41 Pulse Ox 100 09/17/18 19:41 - Medical History PMH: Obstructive Bowel Denies: Crohn's Disease, HIV, Chronic Kidney Disease - Surgical History Other surgeries: abdominal surgery - Family History Family History: States: Unknown Family Hx - Social History Current smoker - smoking cessation education provided: No Alcohol: None Drugs: Denies - Immunization History Hx Tetanus Toxoid Vaccination: No Hx Influenza Vaccination: No Hx Pneumococcal Vaccination: No - Home Medications Home Medications: Ambulatory Orders Medication Instructions Recorded Cholecalciferol [Vitamin D 1000 IU] 1 tab PO DAILY 03/03/18 Multivitamin/Iron/Folic Acid 1 tab PO DAILY 03/03/18 [Centrum Complete Multivit Tab] - Allergies Allergies/Adverse Reactions: Allergies Allergy/AdvReac Type Severity Reaction Status Date / Time No Known Allergies Allergy Verified 03/03/18 11:21 Review of Systems ROS Statement: Except As Marked, All Systems Reviewed And Found Negative Constitutional: Negative for: Fever, Chills Cardiovascular: Negative for: Chest Pain Respiratory: Negative for: Shortness of Breath Gastrointestinal: Positive for: Abdominal Pain (right sided). Negative for: Nausea, Vomiting, Diarrhea Genitourinary Male: Negative for: Dysuria, Frequency, Incontinence Musculoskeletal: Positive for: Back Pain Neurological: Negative for: Weakness, Numbness (tingling), Headache, Dizziness Physical Exam - Reviewed Nursing Documentation Reviewed: Yes Vital Signs Reviewed: Yes - Physical Exam Appears: Positive for: No Acute Distress Head Exam: Positive for: ATRAUMATIC, NORMAL INSPECTION, NORMOCEPHALIC Skin: Positive for: Normal Color, Warm, Dry Eye Exam: Positive for: Normal appearance, EOMI, PERRL Neck: Positive for: Normal, Painless ROM Cardiovascular/Chest: Positive for: Regular Rate, Rhythm. Negative for: Murmur Respiratory: Positive for: Normal Breath Sounds. Negative for: Respiratory Distress Gastrointestinal/Abdominal: Positive for: Tenderness (RLQ ) Back: Positive for: Normal Inspection. Negative for: L CVA Tenderness, R CVA Tenderness, Vertebral Tenderness Extremity: Positive for: Normal ROM (upper and lower extremities). Negative for: Deformity, Swelling Neurologic/Psych: Positive for: Alert, Oriented. Negative for: Motor/Sensory Deficits - Laboratory Results Result Diagrams: 09/17/18 20:46 09/17/18 20:46 Lab Results: no acute - ECG O2 Sat by Pulse Oximetry: 100 (RA) Pulse Ox Interpretation: Normal - Progress ED Course And Treament: 2256: Dr. Tom to fu on ct. Stable. Medical Decision Making Medical Decision Making: Time: 19:48 Initial Impression: abdominal pain Initial Plan: --Abd Pelvis PO & IV contrast [CT] --CMP --Lipase --Urine dip --CBC w/ differential --Omnipaque 240 50 ml PO --Toradol 15 mg IVP --NaCl 1,000 ml IV 1,000 mls/hr --Reevaluation Scribe Attestation: Documented by Mauricio Figueroa, acting as a scribe for Krishan Goodwin MD Provider Scribe Attestation: All medical record entries made by the Scribe were at my direction and personally dictated by me. I have reviewed the chart and agree that the record accurately reflects my personal performance of the history, physical exam, medical decision making, and the department course for this patient. I have also personally directed, reviewed, and agree with the discharge instructions and disposition. Disposition - Clinical Impression Clinical Impression: Abdominal pain - Patient ED Disposition Is Patient to be Admitted: Transfer of Care - Disposition Disposition Time: 22:57 Condition: STABLE Patient Signed Over To: Candido Tom
[2018-09-17 21:01] LABS: ALB/GLOB RATIO 1.1 (1.0-2.1); ALBUMIN 3.3 g/dL (3.5-5.0); ALT/SGPT 28 U/L (21-72); AST/SGOT 21 U/L (17-59); BLOOD UREA NITROGEN 14 mg/dl (9-20); CALCIUM 8.7 mg/dL (8.4-10.2); GFR NON-AFRICAN AMERICAN > 60; LIPASE 31 U/L (23-300)
[2018-09-17] MEDS ORDERED: Sodium Chloride 0.9% 50 ML IV ONE (22:24)
[2018-09-17] MEDS ORDERED: Iohexol 300 100 ML IJ ONE (22:24)
--- NOTE | 2018-09-17 23:01 | ED PDOC ---
- Laboratory Results Result Diagrams: 09/17/18 20:46 09/17/18 20:46 Lab Results: Total Bilirubin 0.3 mg/dl (0.2-1.3) 09/17/18 20:46 AST 21 U/L (17-59) 09/17/18 20:46 ALT 28 U/L (21-72) 09/17/18 20:46 Alkaline Phosphatase 75 U/L (38-126) 09/17/18 20:46 Total Protein 6.3 G/DL (6.3-8.2) 09/17/18 20:46 Albumin 3.3 g/dL (3.5-5.0) L 09/17/18 20:46 Globulin 3.0 gm/dL (2.2-3.9) 09/17/18 20:46 Albumin/Globulin Ratio 1.1 (1.0-2.1) 09/17/18 20:46 Lipase 31 U/L (23-300) 09/17/18 20:46 - ECG O2 Sat by Pulse Oximetry: 100 (RA) Pulse Ox Interpretation: Normal Medical Decision Making Medical Decision Making: Time: 2299 -- Patient endorsed to me by Dr. Goodwin, pending CT read, re-evaluation and final ER disposition. Time: 2326 CT RESULTS FINDINGS: LUNG BASES: The lung bases appear clear. No pleural effusions are seen. LIVER: Unremarkable. GALLBLADDER AND BILE DUCTS: The gallbladder appears within normal limits. No radioopaque gallstones are seen. No biliary ductal dilatation is evident. PANCREAS: Unremarkable. SPLEEN: Unremarkable. ADRENAL GLANDS: Unremarkable. KIDNEYS, URETERS, AND BLADDER: The kidneys appear within normal limits. There is no hydronephrosis or hydroureter. No urinary calculi are seen. STOMACH AND BOWEL: Thick walled fluid filled duodenum and loops of jejunum as well as ileum compatible with severe enteritis. Consider consultation with GI service and follow up with upper endoscopy and colonoscopy. APPENDIX: No evidence of acute appendicitis on CT examination. PERITONEUM: No free fluid. No free air. LYMPH NODES: Innumerable enlarged mesenteric lymph nodes are noted measuring up to 1.2 cm in axial dimension associated with diffuse mesenteric infiltration, please exclude lymphoproliferative disorder clinically. REPRODUCTIVE: Unremarkable as visualized. VASCULATURE: No evidence of abdominal aortic aneurysm. BONES: No aggressive appearing osseous lesion. No acute osseous pathology evident. IMPRESSION: 1. Severe enteritis. Consider consultation with GI service and follow up with upper endoscopy and colonoscopy. 2. Innumerable enlarged mesenteric lymph nodes are noted measuring up to 1.2 cm in axial dimension associated with diffuse mesenteric infiltration, please exclude lymphoproliferative disorder clinically. Electronically signed on Sep 17, 2018 11:27:02 PM EST by: Sung Hagen M.D., JAMA Certified By [facility] & [facility] Fellowship Trained MRI and CT Specialist Time: 2350 -- Patient reports symptoms have improved significantly. Patient will follow up with [facility] where he is an established patient. Patient to be discharged home with a diagnosis of gastroenteritis. Scribe Attestation: Documented by Octavio Tirado, acting as a scribe for Candido Tom MD. Provider Scribe Attestation: All medical record entries made by the Scribe were at my direction and personally dictated by me. I have reviewed the chart and agree that the record accurately reflects my personal performance of the history, physical exam, medic al decision making, and the department course for this patient. I have also personally directed, reviewed, and agree with the discharge instructions and disposition. Disposition Counseled Patient/Family Regarding: Studies Performed, Diagnosis, Need For Followup, Rx Given - Clinical Impression Clinical Impression: Abdominal pain, Gastroenteritis - POA Present On Arrival: None - Disposition Disposition: Routine/Home Disposition Time: 23:50 Condition: IMPROVED Prescriptions: Dicyclomine [Bentyl] 20 mg PO Q12 PRN #20 tab PRN Reason: abdominal pain/diarrhea Ondansetron ODT [Zofran ODT] 4 mg PO Q6 PRN #8 odt PRN Reason: Nausea/Vomiting Instructions: Viral Gastroenteritis Forms: [facility] (Swazi) Print Language: FAROESE
[2018-09-18 00:40] VITALS: BP 131/71; PULSE 82; RESP 16; TEMP 98.2; O2SAT 98
--- NOTE | 2018-09-19 10:34 | CT ---
Date of service: 09/17/2018 PROCEDURE: CT Abdomen and Pelvis with contrast HISTORY: abd pain COMPARISON: CT scan of the abdomen and pelvis dated 03/03/2018 TECHNIQUE: Contrast dose: 95 mL Omnipaque 300 Radiation dose: Total exam DLP = 330.44 mGy-cm. This CT exam was performed using one or more of the following dose reduction techniques: Automated exposure control, adjustment of the mA and/or kV according to patient size, and/or use of iterative reconstruction technique. FINDINGS: LOWER THORAX: Unremarkable. LIVER: Unremarkable. No gross lesion or ductal dilatation. GALLBLADDER AND BILE DUCTS: Unremarkable. PANCREAS: Unremarkable. No gross lesion or ductal dilatation. SPLEEN: Unremarkable. ADRENALS: Unremarkable. No mass. KIDNEYS AND URETERS: Unremarkable. No hydronephrosis. No solid mass. VASCULATURE: Unremarkable. No aortic aneurysm. No aortic atherosclerotic calcification or mural plaque present. BOWEL: Severe wall thickening involving loops of small bowel. APPENDIX: Normal appendix. PERITONEUM: Unremarkable. No free fluid. No free air. LYMPH NODES: Enlarged mesenteric lymph nodes, the largest measures 1.7 x 1.7 cm (series 3, image 110). BLADDER: Unremarkable. REPRODUCTIVE: Unremarkable. BONES: No acute fracture. OTHER FINDINGS: None. IMPRESSION: Severe enteritis. Mesenteric lymphadenopathy which may be reactive versus related to lymphoproliferative disorder. Follow-up is advised. Additional stable findings as above.
== END 2018-09-18 00:40 | disposition home or self-care (01) ==
LOC: H.ER 19:40
DX: K52.9 Noninfective gastroenteritis and colitis, unspecified (principal)
CPT/HCPCS: 74177; 80053; 83690; 85025; 96374; 99283; J1885; J7030; Q9966; Q9967

== ENCOUNTER 2018-09-30 19:38 | Emergency (ER) | payer SELFPAY ==
[2018-09-30 19:38] VITALS: BMI 23.6
[2018-09-30 20:02] VITALS: O2SAT 99
[2018-09-30] MEDS ORDERED: Sodium Chloride 0.9% 1,000 ML IV STA (21:56)
[2018-09-30 22:19] LABS: BASO % 0.4 % (0.0-2.0); EOS % 0.2 % (0.0-4.0); HEMOGLOBIN 11.8 g/dL (12.0-18.0); LYMPH % 8.5 % (20.0-40.0); MEAN CELL VOLUME 88.5 fl (80.0-94.0); MEAN CORPUSCULAR HEMOGLOBIN 29.3 pg (27.0-31.0); MEAN CORPUSCULAR HGB CONC 33.2 g/dL (33.0-37.0); MEAN PLATELET VOLUME 8.8 fl (7.2-11.7); MONO # 1.8 K/uL (0.0-0.8); MONO % 14.3 % (0.0-10.0); NEUT # 9.4 K/uL (1.8-7.0); NEUT % 76.6 % (50.0-75.0); PLATELET COUNT 301 K/uL (130-400); RBC 4.02 Mil/uL (4.40-5.90); RED CELL DISTRIBUTION WIDTH 13.5 % (11.5-14.5); WHITE BLOOD COUNT 12.3 K/uL (4.8-10.8)
[2018-09-30 22:22] LABS: SQUAMOUS EPITHIAL < 1 /hpf (0-5); URINE BILIRUBIN NEGATIVE (NEGATIVE); URINE BLOOD SMALL (NEGATIVE); URINE CLARITY CLEAR (Clear); URINE COLOR STRAW (YELLOW); URINE GLUCOSE (UA) NEG (NEGATIVE); URINE LEUKOCYTE ESTERASE NEG Leu/uL (Negative); URINE PROTEIN NEGATIVE (NEGATIVE); URINE UROBILINOGEN 0.2-1.0 mg/dL (0.2-1.0)
[2018-09-30 22:23] LABS: URINE BACTERIA FEW (<OCC)
[2018-09-30 22:26] LABS: ALBUMIN 3.5 g/dL (3.5-5.0); ALT/SGPT 23 U/L (21-72); AST/SGOT 36 U/L (17-59); BLOOD UREA NITROGEN 14 mg/dl (9-20); CALCIUM 8.4 mg/dL (8.4-10.2); GFR NON-AFRICAN AMERICAN > 60; LIPASE 11 U/L (23-300)
--- NOTE | 2018-09-30 22:36 | ED PDOC ---
HPI: Abdomen Time Seen by Provider: 09/30/18 21:41 Chief Complaint (Nursing): Abdominal Pain Chief Complaint (Provider): Abdominal Pain, Diarrhea History Per: Patient History/Exam Limitations: no limitations Onset/Duration Of Symptoms: Days (x1 week) Current Symptoms Are (Timing): Still Present Additional Complaint(s): 43 year old male with pmhx of recurrent small bowel obstruction presents to the ED for one week of left flank pain and diarrhea. Patient was seen here approximately one month ago for similar symptoms and was discharged after a normal CT / workup with gastroenteritis. Today, he returns with the flank pain and 3-4 episodes of loose stool. PMD: none provided Past Medical History Reviewed: Historical Data, Nursing Documentation, Vital Signs Vital Signs: Last Vital Signs Temp 99 F 09/30/18 20:00 Pulse 107 H 09/30/18 20:00 Resp 20 09/30/18 20:00 BP 114/68 09/30/18 20:00 Pulse Ox 99 09/30/18 20:00 - Medical History PMH: Obstructive Bowel (SBO) Denies: Crohn's Disease, HIV, Chronic Kidney Disease - Surgical History Surgical History: No Surg Hx - Family History Family History: States: Unknown Family Hx - Social History Current smoker - smoking cessation education provided: No Alcohol: None Drugs: Denies - Immunization History Hx Tetanus Toxoid Vaccination: No Hx Influenza Vaccination: No Hx Pneumococcal Vaccination: No - Home Medications Home Medications: Ambulatory Orders Medication Instructions Recorded RX: Cholecalciferol [Vitamin D 1 tab PO DAILY 03/03/18 1000 IU] RX: Multivitamin/Iron/Folic Acid 1 tab PO DAILY 03/03/18 [Centrum Complete Multivit Tab] Dicyclomine [Bentyl] 20 mg PO Q12 PRN #20 tab 09/17/18 Ondansetron ODT [Zofran ODT] 4 mg PO Q6 PRN #8 odt 09/17/18 Dicyclomine [Bentyl] 20 mg PO Q12 PRN #20 tab 10/01/18 Ondansetron ODT [Zofran ODT] 4 mg PO Q6 PRN #8 odt 10/01/18 - Allergies Allergies/Adverse Reactions: Allergies Allergy/AdvReac Type Severity Reaction Status Date / Time No Known Allergies Allergy Verified 09/30/18 20:00 Review of Systems ROS Statement: Except As Marked, All Systems Reviewed And Found Negative Gastrointestinal: Positive for: Nausea, Abdominal Pain (left flank), Diarrhea Physical Exam - Reviewed Nursing Documentation Reviewed: Yes Vital Signs Reviewed: Yes - Physical Exam Appears: Positive for: No Acute Distress Head Exam: Positive for: ATRAUMATIC, NORMAL INSPECTION, NORMOCEPHALIC Skin: Positive for: Normal Color, Warm, DRY Eye Exam: Positive for: EOMI, Normal appearance, PERRL Neck: Positive for: Normal, Painless ROM, Supple Cardiovascular/Chest: Positive for: Regular Rate, Rhythm Respiratory: Positive for: Normal Breath Sounds. Negative for: Respiratory Distress Gastrointestinal/Abdominal: Positive for: Soft, Tenderness (mild RUQ tenderness) Back: Positive for: Normal Inspection Extremity: Positive for: Normal ROM (all extremities) Neurologic/Psych: Positive for: Alert, Oriented (x3). Negative for: Motor/Sensory Deficits - Laboratory Results Result Diagrams: 09/30/18 22:11 09/30/18 22:11 Lab Results: Total Bilirubin 1.2 mg/dl (0.2-1.3) 09/30/18 22:11 AST 36 U/L (17-59) 09/30/18 22:11 ALT 23 U/L (21-72) 09/30/18 22:11 Alkaline Phosphatase 81 U/L (38-126) 09/30/18 22:11 Total Protein 7.1 G/DL (6.3-8.2) 09/30/18 22:11 Albumin 3.5 g/dL (3.5-5.0) 09/30/18 22:11 Globulin 3.6 gm/dL (2.2-3.9) 09/30/18 22:11 Albumin/Globulin Ratio 1.0 (1.0-2.1) 09/30/18 22:11 Lipase 11 U/L (23-300) L 09/30/18 22:11 Urine Color Straw (YELLOW) 09/30/18 22:11 Urine Clarity Clear (Clear) 09/30/18 22:11 Urine pH 6.0 (5.0-8.0) 09/30/18 22:11 Ur Specific Babcock 1.005 (1.003-1.030) 09/30/18 22:11 Urine Protein Negative mg/dL (NEGATIVE) 09/30/18 22:11 Urine Glucose (UA) Neg mg/dL (NEGATIVE) 09/30/18 22:11 Urine Ketones Trace mg/dL (NEGATIVE) 09/30/18 22:11 Urine Blood Small (NEGATIVE) 09/30/18 22:11 Urine Nitrate Negative (NEGATIVE) 09/30/18 22:11 Urine Bilirubin Negative (NEGATIVE) 09/30/18 22:11 Urine Urobilinogen 0.2-1.0 mg/dL (0.2-1.0) 09/30/18 22:11 Ur Leukocyte Esterase Neg Grupo/uL (Negative) 09/30/18 22:11 Urine RBC (Auto) 6 /hpf (0-3) H 09/30/18 22:11 Urine Microscopic WBC < 1 /hpf (0-5) 09/30/18 22:11 Ur Squamous Epith Cells < 1 /hpf (0-5) 09/30/18 22:11 Urine Bacteria Few (<OCC) H 09/30/18 22:11 - ECG O2 Sat by Pulse Oximetry: 99 (RA) Pulse Ox Interpretation: Normal Medical Decision Making Medical Decision Making: Time: 2142 Initial Impression: 43 year old male with RUQ pain and diarrhea Initial Plan: --CMP --Lipase --U-dip --CBC with differential --Bentyl 20mg PO --Normal saline IV --Pepcid 20mg IV --Urinalysis --US gallbladder and pancreas --Reevaluation Scribe Attestation: Documented by Estelle Souza acting as a scribe for Candido Tom MD. Provider Scribe Attestation: All medical record entries made by the Scribe were at my direction and personally dictated by me. I have reviewed the chart and agree that the record accurately reflects my personal performance of the history, physical exam, medical decision making, and the department course for this patient. I have also personally directed, reviewed, and agree with the discharge instructions and disposition. Time: 2332 US RESULTS Findings Liver Measures 18.5 cm in length. Normal echogenicity of the liver parenchyma. Smooth contour. No mass. No intrahepatic bile duct dilatation. No ascites. Gallbladder Unremarkable. No gallstones. No sludge. No wall edema. Gallbladder wall thickness is 0.2 cm. Negative [place] sign. Common bile duct Measures 3 mm. No stones. No dilatation. Pancreas Unremarkable as visualized. No mass. No ductal dilatation. Right kidney Measures 11.3 x 4.7 x 4.4 cm. Normal echogenicity. No calculus, mass, or hydronephrosis. Aorta No aneurysmal dilatation. IVC Unremarkable. Other Findings None. Impression Normal study. Electronically signed on Sep 30, 2018 11:33:17 PM EST by: Sung Hagen M.D., MBA Certified By [facility] Trained MRI and CT Specialist Time: 138 -- On re-evaluation, patient reports of an improvement of symptoms. Patient is stable for discharge home with a diagnosis of gastroenteritis. Scribe Attestation: Documented by Octavio Tirado, acting as a scribe for Candido Tom MD. Provider Scribe Attestation: All medical record entries made by the Scribe were at my direction and pers onally dictated by me. I have reviewed the chart and agree that the record accurately reflects my personal performance of the history, physical exam, medical decision making, and the department course for this patient. I have also personally directed, reviewed, and agree with the discharge instructions and disposition. Disposition - Clinical Impression Clinical Impression: Gastroenteritis - Disposition Disposition: Routine/Home Disposition Time: 01:00 Condition: STABLE Prescriptions: Dicyclomine [Bentyl] 20 mg PO Q12 PRN #20 tab PRN Reason: abdominal pain/diarrhea Ondansetron ODT [Zofran ODT] 4 mg PO Q6 PRN #8 odt PRN Reason: Nausea/Vomiting Instructions: Gastroenteritis (ED) Forms: [facility] (Kazakh) Print Language: YAKUT
[2018-09-30 23:04] LABS: BANDS 2 % (0-2); LYMPHOCYTE 10 % (20-50); MONOCYTE 13 % (0-10); NEUTROPHIL 75 % (42-75); PLATELET ESTIMATE NORMAL (NORMAL); TOTAL CELLS COUNTED 100
[2018-10-01 02:04] VITALS: BP 107/62; PULSE 83; RESP 18; TEMP 98.7
--- NOTE | 2018-10-01 11:40 | US ---
Date of service: 09/30/2018 HISTORY: epigastric pain COMPARISON: CT abdomen and pelvis with contrast performed 09/17/18 TECHNIQUE: Sonographic evaluation of the right upper quadrant of the abdomen. FINDINGS: LIVER: Measures 18.5 cm in length and appears within normal limits of shape and echotexture. No focal hepatic mass identified. The main portal vein appears patent with normal directional flow. No intrahepatic bile duct dilatation. GALLBLADDER: No gallstones. No gallbladder wall thickening or pericholecystic edema. Negative sonographic Clark's sign as assessed by the bottom loader. COMMON BILE DUCT: Measures 2 mm. PANCREAS: Not well-visualized. RIGHT KIDNEY: Measures approximately 11.3 x 4.7 x 4.4 cm. No obstructing calculus or hydronephrosis identified. AORTA: Limited visualization appears grossly unremarkable. IVC: Limited visualization appears grossly unremarkable. OTHER FINDINGS: None . IMPRESSION: No acute findings as above. Preliminary impression was provided by [facility].
== END 2018-10-01 02:05 | disposition home or self-care (01) ==
LOC: H.ER 19:38
DX: K52.9 Noninfective gastroenteritis and colitis, unspecified (principal)
CPT/HCPCS: 76705; 80053; 81003; 83690; 85025; 96360; 99284; J1885; J7030